=== PATIENT | female | born 1975 | race Caucasian/White ===

== ENCOUNTER 2016-09-11 07:41 | Inpatient (IN) | payer MEDICAID ==
[~2016-09-11] VITALS: Ht 154.9 cm; Wt 114.6 kg
[2016-09-11] MEDS ORDERED: SODIUM CHLORIDE FLUSH 10ML SYR IVF ONE (09:30)
[2016-09-11] MEDS ORDERED: SODIUM CHLORIDE 0.9% 1,000ML IVBOLUS ONE (09:30)
[2016-09-11] MEDS ORDERED: VANCOMYCIN PER PHARMACY MC ONE (09:30)
[2016-09-11] MEDS ORDERED: ACETAMINOPHEN 500 MG TABLET PO ONE (09:30)
[2016-09-11] MEDS ORDERED: HYDR25TA6 PO (09:45)
[2016-09-11] MEDS ORDERED: LISI-170 PO (09:45)
[2016-09-11] MEDS ORDERED: ALBU18HF INH (09:45)
[2016-09-11] MEDS ORDERED: ACETAMINOPHEN 500 MG TABLET ONE (09:48)
[2016-09-11] MEDS ORDERED: PHARMACOKINETIC CONSULTATION MC ONE ×2 (10:00→14:00)
[2016-09-11] MEDS ORDERED: VANCOMYCIN 2,000 MG in SODIUM CHLORIDE 0.9% 500 ML IV ONE (10:00)
[2016-09-11 10:09] LABS: HEMATOCRIT 38.5 % (34.6-47.8); HEMOGLOBIN 12.9 g/dL (11.7-16.4); WHITE BLOOD COUNT 25.3 x10^3/uL (3.4-10)
[2016-09-11 10:22] LABS: BLOOD UREA NITROGEN 6 mg/dL (7-18)
[2016-09-11 10:25] LABS: DIFF TOTAL CELLS COUNTED 100 CELL DIFF
[2016-09-11 10:26] LABS: ASPARTATE AMINO TRANSFERASE 20 U/L (15-37)
[2016-09-11 10:28] LABS: VERIFY COUNTS? YES
[2016-09-11 10:36] LABS: PATH.CAST-FLAG NOT PRESENT; SPERM-FLAG NOT PRESENT; SRC-FLAG NOT PRESENT; XTAL-FLAG NOT PRESENT; YLC-FLAG NOT PRESENT
[2016-09-11] MEDS ORDERED: CEFTRIAXONE PMX 1GM/50ML 50 ML IV ONE (11:00)
[2016-09-11 11:30] VITALS: BP 154/108
[2016-09-11] MEDS: HYDROCHLOROTHIAZIDE 25 MG TABLET PO SCH (11:30)
[2016-09-11] MEDS ORDERED: VANCOMYCIN PER PHARMACY MC PRN (13:00)
[2016-09-11] MEDS ORDERED: ONDANSETRON 2MG/ML, 2ML IVPush PRN (13:00)
[2016-09-11] MEDS ORDERED: ENALAPRILAT 1.25 MG/ML, 2ML IVPush PRN (13:00)
[2016-09-11] MEDS ORDERED: TEMAZEPAM 15 MG CAPSULE PO PRN (13:00)
[2016-09-11] MEDS ORDERED: DOCUSATE 100 MG CAPSULE PO PRN (13:00)
[2016-09-11] MEDS ORDERED: LABETALOL 5MG/ML, 20ML IVPush PRN (13:00)
[2016-09-11] MEDS ORDERED: PHARMACOKINETIC MONITORING MC PRN (14:00)
[2016-09-11] MEDS: NICOTINE 21 MG/24 HR PATCH.TD24 TD SCH (15:07)
[2016-09-11] MEDS: HEPARIN 5,000 UNITS/ML, 1ML SQ SCH ×2 (15:09→22:33)
[2016-09-11] MEDS: POTASSIUM CHLORIDE 20 MEQ TAB.ER.PRT PO SCH (15:11)
[2016-09-11] MEDS: LISINOPRIL 20 MG TABLET PO SCH (15:11)
[2016-09-11 19:49] VITALS: BP 149/96
[2016-09-11] MEDS: FAMOTIDINE 20 MG/2 ML IVPush SCH (22:33)
[2016-09-11] MEDS: morphine SULFATE 10 MG/ML, 1ML IVPush PRN (22:33)
[2016-09-12 03:03] VITALS: BP 150/80
[2016-09-12] MEDS: VANCOMYCIN 2,000 MG in SODIUM CHLORIDE 0.9% 500 ML IV SCH ×2 (04:31→23:14)
[2016-09-12 05:05] LABS: BLOOD UREA NITROGEN 4 mg/dL (7-18); HEMATOCRIT 36.9 % (34.6-47.8); HEMOGLOBIN 12.1 g/dL (11.7-16.4); WHITE BLOOD COUNT 19.2 x10^3/uL (3.4-10)
[2016-09-12 05:17] LABS: ASPARTATE AMINO TRANSFERASE 12 U/L (15-37)
[2016-09-12 06:39] VITALS: BP 135/91
[2016-09-12] MEDS: HYDROCHLOROTHIAZIDE 25 MG TABLET PO SCH (08:05)
[2016-09-12] MEDS: POTASSIUM CHLORIDE 20 MEQ TAB.ER.PRT PO SCH ×2 (08:05→17:00)
[2016-09-12] MEDS: LISINOPRIL 20 MG TABLET PO SCH (08:05)
[2016-09-12] MEDS: HEPARIN 5,000 UNITS/ML, 1ML SQ SCH ×3 (08:05→23:17)
[2016-09-12] MEDS: FAMOTIDINE 20 MG/2 ML IVPush SCH ×2 (08:05→19:53)
[2016-09-12] MEDS: SENNA/DOCUSATE TABLET PO SCH (08:05)
[2016-09-12] MEDS: CEFTRIAXONE PMX 2GM/50ML 50 ML IV SCH (08:40)
[2016-09-12 12:32] VITALS: BP 138/88
[2016-09-12] MEDS: NICOTINE 21 MG/24 HR PATCH.TD24 TD SCH (15:01)
[2016-09-12] MEDS ORDERED: POTASSIUM PHOS 4.4 MEQ/ML IV SCH (15:30)
[2016-09-12] MEDS: NEUTRA PHOS K 250 MG TABLET PO SCH ×2 (16:21→19:53)
[2016-09-12] MEDS ORDERED: MAGNESIUM SULFATE PMX 4GM/100M 100 ML IV ONE (17:00)
[2016-09-12] MEDS ORDERED: POTASSIUM PHOSPHATE 44 MEQ in SODIUM CHLORIDE 0.9% 500 ML IV ONE (17:00)
[2016-09-12] MEDS: LORazepam 1MG TABLET PO PRN (17:29)
[2016-09-12 19:02] VITALS: BP 132/82
[2016-09-12] MEDS: MAGNESIUM OXIDE 400 MG TABLET PO SCH (19:53)
[2016-09-13 01:12] VITALS: BP 139/86
[2016-09-13] MEDS: ACETAMINOPHEN 325 MG TABLET PO PRN ×2 (01:22→23:08)
[2016-09-13 05:47] LABS: HEMATOCRIT 35.5 % (34.6-47.8); HEMOGLOBIN 11.7 g/dL (11.7-16.4); WHITE BLOOD COUNT 12.6 x10^3/uL (3.4-10)
[2016-09-13 05:52] LABS: ASPARTATE AMINO TRANSFERASE 16 U/L (15-37); BLOOD UREA NITROGEN 6 mg/dL (7-18)
[2016-09-13] MEDS: HEPARIN 5,000 UNITS/ML, 1ML SQ SCH ×3 (06:00→23:08)
[2016-09-13 07:37] VITALS: BP 139/81
[2016-09-13] MEDS: CEFTRIAXONE PMX 2GM/50ML 50 ML IV SCH (09:02)
[2016-09-13] MEDS: LISINOPRIL 20 MG TABLET PO SCH (09:03)
[2016-09-13] MEDS: FAMOTIDINE 20 MG/2 ML IVPush SCH ×2 (09:03→19:48)
[2016-09-13] MEDS: MAGNESIUM OXIDE 400 MG TABLET PO SCH ×2 (09:03→19:48)
[2016-09-13] MEDS: HYDROCHLOROTHIAZIDE 25 MG TABLET PO SCH (09:03)
[2016-09-13] MEDS: NEUTRA PHOS K 250 MG TABLET PO SCH ×3 (09:03→19:48)
[2016-09-13] MEDS: SENNA/DOCUSATE TABLET PO SCH (09:03)
[2016-09-13 13:28] VITALS: BP 133/77
[2016-09-13] MEDS: NICOTINE 21 MG/24 HR PATCH.TD24 TD SCH (16:01)
[2016-09-13] MEDS: VANCOMYCIN 2,000 MG in SODIUM CHLORIDE 0.9% 500 ML IV SCH (16:01)
[2016-09-13] MEDS: LORazepam 1MG TABLET PO PRN (16:01)
[2016-09-13 18:53] VITALS: BP 153/99
[2016-09-13] MEDS: morphine SULFATE 10 MG/ML, 1ML IVPush PRN (19:48)
[2016-09-14 01:53] VITALS: BP 145/97
[2016-09-14] MEDS ORDERED: KETOROLAC 30 MG/1 ML IVPush PRN (02:00)
[2016-09-14] MEDS ORDERED: ONDANSETRON 2MG/ML, 2ML IVPush PRN (02:00)
[2016-09-14] MEDS: ACETAMINOPHEN 325 MG TABLET PO PRN ×4 (05:37→20:50)
[2016-09-14] MEDS ORDERED: POTASSIUM CHLORIDE 10 MEQ TABLET.ER PO SCH (07:30)
[2016-09-14 07:59] VITALS: BP 152/109
[2016-09-14] MEDS: ONDANSETRON ODT 4 MG PO PRN ×3 (08:51→20:50)
[2016-09-14] MEDS: SENNA/DOCUSATE TABLET PO SCH (08:52)
[2016-09-14] MEDS: HYDROCHLOROTHIAZIDE 25 MG TABLET PO SCH (08:52)
[2016-09-14] MEDS: MAGNESIUM OXIDE 400 MG TABLET PO SCH ×2 (08:52→20:50)
[2016-09-14] MEDS: CEFTRIAXONE PMX 2GM/50ML 50 ML IV SCH (08:53)
[2016-09-14] MEDS: HEPARIN 5,000 UNITS/ML, 1ML SQ SCH ×3 (08:53→23:12)
[2016-09-14] MEDS: LISINOPRIL 20 MG TABLET PO SCH (08:53)
[2016-09-14] MEDS: NEUTRA PHOS K 250 MG TABLET PO SCH ×3 (08:56→23:09)
[2016-09-14] MEDS: FAMOTIDINE 20 MG/2 ML IVPush SCH ×2 (09:02→20:50)
[2016-09-14] MEDS: VANCOMYCIN 2,000 MG in SODIUM CHLORIDE 0.9% 500 ML IV SCH (11:22)
[2016-09-14 13:59] VITALS: BP 140/107
[2016-09-14] MEDS ORDERED: BISACODYL 10 MG SUPP PR PRN (15:00)
[2016-09-14] MEDS: NICOTINE 21 MG/24 HR PATCH.TD24 TD SCH (15:07)
[2016-09-14 19:25] VITALS: BP 125/86
[2016-09-15 02:07] VITALS: BP 140/95
[2016-09-15] MEDS: ACETAMINOPHEN 325 MG TABLET PO PRN ×3 (02:09→14:30)
[2016-09-15] MEDS: ONDANSETRON ODT 4 MG PO PRN (02:09)
[2016-09-15] MEDS: VANCOMYCIN 2,000 MG in SODIUM CHLORIDE 0.9% 500 ML IV SCH (04:54)
[2016-09-15 04:56] LABS: HEMATOCRIT 35.8 % (34.6-47.8); HEMOGLOBIN 11.8 g/dL (11.7-16.4); WHITE BLOOD COUNT 8.5 x10^3/uL (3.4-10)
[2016-09-15 05:06] LABS: BLOOD UREA NITROGEN 9 mg/dL (7-18)
[2016-09-15 05:09] LABS: ASPARTATE AMINO TRANSFERASE 10 U/L (15-37)
[2016-09-15 06:32] VITALS: BP 116/58
[2016-09-15 07:11] VITALS: BP 153/91
[2016-09-15] MEDS: SENNA/DOCUSATE TABLET PO SCH ×2 (09:00→09:43)
[2016-09-15] MEDS: FAMOTIDINE 20 MG/2 ML IVPush SCH (09:42)
[2016-09-15] MEDS: CEFTRIAXONE PMX 2GM/50ML 50 ML IV SCH (09:43)
[2016-09-15] MEDS: LISINOPRIL 20 MG TABLET PO SCH (09:43)
[2016-09-15] MEDS: HYDROCHLOROTHIAZIDE 25 MG TABLET PO SCH (09:43)
[2016-09-15] MEDS: NEUTRA PHOS K 250 MG TABLET PO SCH (09:43)
[2016-09-15] MEDS: MAGNESIUM OXIDE 400 MG TABLET PO SCH (09:43)
[2016-09-15] MEDS: HEPARIN 5,000 UNITS/ML, 1ML SQ SCH (09:54)
[2016-09-15 12:35] VITALS: BP 170/98
[2016-09-15] MEDS ORDERED: HYDR25TA6 PO (14:05)
[2016-09-15] MEDS ORDERED: SULF1TAB24 PO (14:05)
[2016-09-15] MEDS ORDERED: LISI-170 PO (14:07)
[2016-09-15] MEDS: NICOTINE 21 MG/24 HR PATCH.TD24 TD SCH ×2 (14:30→14:32)
== END 2016-09-15 16:00 | disposition home or self-care (01) | DRG 603 ==
LOC: ED 10:39 → 3NE 10:40 → ED 10:57
PROVIDERS: ADMIT Internal Medicine; ATTEND Internal Medicine
DX: L03.116 Cellulitis of left lower limb (principal); E87.1 Hypo-osmolality and hyponatremia; E44.0 Moderate protein-calorie malnutrition; N39.0 Urinary tract infection, site not specified; Z68.42 Body mass index [BMI] 45.0-49.9, adult; D64.9 Anemia, unspecified; E66.01 Morbid (severe) obesity due to excess calories; E87.6 Hypokalemia; F12.90 Cannabis use, unspecified, uncomplicated; F15.90 Other stimulant use, unspecified, uncomplicated; F17.210 Nicotine dependence, cigarettes, uncomplicated; F32.9 Major depressive disorder, single episode, unspecified; F41.9 Anxiety disorder, unspecified; I10 Essential (primary) hypertension; Z59.0 Homelessness
CPT/HCPCS: 36415; 71010; 80053; 80202; 81001; 83605; 83735; 84100; 84145; 84443; 84703; 85025; 87040; 87086; 93005; 96365; J0696; J1644; J1885; J2405; J3370; Q0162; J2270; J3475; J7030; J7040; Q0177; S0028

== ENCOUNTER 2019-08-12 17:15 | Inpatient (IN) | payer MEDICAID ==
[~2019-08-12] VITALS: Ht 154.9 cm; Wt 120.7 kg
[~2019-08-12 17:15] MED LIST: ALBU18HF INH; HYDR25TA6 PO; LISI-170 PO; SULF1TAB24 PO
--- NOTE | 2019-08-12 17:42 | NUR ---
RADIOLOGY AT BEDSIDE
[2019-08-12] MEDS ORDERED: ALBUTEROL SULFATE 2.5 MG/3 ML NPPB ONE (18:00)
[2019-08-12 18:22] LABS: ALANINE AMINOTRANSFERASE 23 U/L (12-78); ALBUMIN 2.9 g/dL (3.4-5.0); ANION GAP 6 mmol/L (5-15); CALCIUM 8.7 mg/dL (8.5-10.1); CHLORIDE 106 mmol/L (98-107); CREATININE 0.87 mg/dL (0.55-1.02)
[2019-08-12 18:26] LABS: ALKALINE PHOSPHATASE 98 U/L (45-117); BILIRUBIN,TOTAL 0.2 mg/dL (0.2-1.0); TOTAL PROTEIN 6.8 g/dL (6.4-8.2); TROPONIN I < 0.015 ng/mL (0.000-0.045)
[2019-08-12 18:56] LABS: BASOPHILS # (AUTO) 0.06 x10^3/uL (0-0.1); BASOPHILS % (AUTO) 1 % (0-1); EOSINOPHILS # (AUTO) 0.23 x10^3/uL (0-0.4); EOSINOPHILS % (AUTO) 3 % (1-7); LYMPHOCYTES % (AUTO) 26 % (22-44); MD NO; MEAN CORPUSCULAR HEMOGLOBIN 29.3 pg (27.0-34.8); MEAN CORPUSCULAR HGB CONC 32.5 g/dL (32.4-35.8); MEAN PLATELET VOLUME 7.8 fL (7.4-10.4); MONOCYTES # (AUTO) 0.58 x10^3/uL (0.2-0.8); MONOCYTES % (AUTO) 7 % (2-9); NEUTROPHILS # (AUTO) 5.26 x10^3/uL (1.8-6.8); NEUTROPHILS % (AUTO) 63 % (42-75); PLATELET COUNT 283 x10^3/uL (130-400); RED BLOOD COUNT 3.97 x10^6/uL (3.82-5.3); RED CELL DISTRIBUTION WIDTH 14.1 % (9.6-15.2)
--- NOTE | 2019-08-12 19:03 | NUR ---
piv placed to left ac for CTA
[2019-08-12] MEDS ORDERED: ALBUTEROL SULFATE 2.5 MG/3 ML ONE (19:14)
--- NOTE | 2019-08-12 19:20 | NUR ---
to ct scan
[2019-08-12] MEDS ORDERED: OMNIPAQUE 350 MG/ML, 75ML BOTTLE ONE (19:32)
--- NOTE | 2019-08-12 20:00 | NUR ---
post neb tx patien coughed up 5cm blood clot provider made aware post neb tx bs slighly improved
[2019-08-12] MEDS ORDERED: BISACODYL 10 MG SUPP PR PRN (20:30)
[2019-08-12] MEDS ORDERED: POLYETHYLENE GLYCOL 17 GM PACKET PO PRN (20:30)
[2019-08-12] MEDS ORDERED: ACETAMINOPHEN 325 MG TABLET PO PRN (20:30)
[2019-08-12] MEDS ORDERED: ONDANSETRON ODT 4 MG PO PRN (20:30)
[2019-08-12] MEDS ORDERED: HEPARIN 25,000 UNITS/250ML PMX 250 ML IV PRN ×2 (20:30→22:00)
[2019-08-12] MEDS ORDERED: HEPARIN 25,000 UNITS/250ML PMX 250 ML ONE (20:57)
[2019-08-12] MEDS ORDERED: HEPARIN 5,000 UNITS/ML, 1ML ONE (20:57)
[2019-08-12] MEDS ORDERED: HEPARIN 5,000 UNITS/ML, 1ML IV PRN ×2 (21:00→22:00)
[2019-08-12] MEDS ORDERED: HEPARIN 5,000 UNITS/ML, 1ML IV ONE ×2 (21:00→22:00)
[2019-08-12] MEDS: NICOTINE 14MG/24 HR PATCH.TD24 TD SCH (21:54)
[2019-08-12 22:05] VITALS: BP 145/95
[2019-08-13 01:01] VITALS: BP 141/91
[2019-08-13 04:00] LABS: ANION GAP 6 mmol/L (5-15); CALCIUM 8.5 mg/dL (8.5-10.1); CHLORIDE 107 mmol/L (98-107); CREATININE 0.79 mg/dL (0.55-1.02)
[2019-08-13 04:08] LABS: MEAN CORPUSCULAR HEMOGLOBIN 28.7 pg (27.0-34.8); MEAN CORPUSCULAR HGB CONC 30.6 g/dL (32.4-35.8); MEAN PLATELET VOLUME 7.7 fL (7.4-10.4); PLATELET COUNT 304 x10^3/uL (130-400); RED BLOOD COUNT 4.01 x10^6/uL (3.82-5.3); RED CELL DISTRIBUTION WIDTH 15.9 % (9.6-15.2)
[2019-08-13] MEDS ORDERED: HEPARIN 5,000 UNITS/ML, 1ML IV PRN (04:30)
[2019-08-13] MEDS ORDERED: HEPARIN 25,000 UNITS/250ML PMX 250 ML IV PRN (04:30)
[2019-08-13 04:34] LABS: BASOPHILS # (AUTO) 0.04 x10^3/uL (0-0.1); BASOPHILS % (AUTO) 0 % (0-1); EOSINOPHILS # (AUTO) 0.24 x10^3/uL (0-0.4); EOSINOPHILS % (AUTO) 3 % (1-7); LYMPHOCYTES # (AUTO) 2.91 x10^3/uL (1-3.4); LYMPHOCYTES % (AUTO) 34 % (22-44); MD SCAN; MONOCYTES % (AUTO) 7 % (2-9); NEUTROPHILS # (AUTO) 4.72 x10^3/uL (1.8-6.8); NEUTROPHILS % (AUTO) 56 % (42-75)
[2019-08-13 07:11] VITALS: BP 171/122
[2019-08-13 07:46] VITALS: BP 178/120
[2019-08-13] MEDS: LISINOPRIL 20 MG TABLET PO SCH (07:51)
[2019-08-13] MEDS: CHLORDIAZEPOXIDE 25 MG CAPSULE PO PRN ×2 (07:51→17:17)
[2019-08-13] MEDS: HYDROCHLOROTHIAZIDE 25 MG TABLET PO SCH (07:51)
[2019-08-13] MEDS: SENNA/DOCUSATE TABLET PO SCH (07:51)
[2019-08-13 08:31] VITALS: BP 134/80
[2019-08-13] MEDS ORDERED: LORazepam 1MG TABLET PO PRN (11:00)
[2019-08-13] MEDS ORDERED: LORazepam 2 MG/ML, 1ML IV PRN ×3 (11:00)
[2019-08-13] MEDS ORDERED: LORazepam 0.5MG TABLET PO PRN (11:00)
[2019-08-13] MEDS: ACETAMINOPHEN 325 MG TABLET PO PRN (11:22)
[2019-08-13] MEDS: CARVEDILOL 6.25 MG TABLET PO SCH ×2 (11:23→17:57)
[2019-08-13] MEDS: APIXABAN 5 MG TABLET PO SCH ×2 (11:23→21:35)
[2019-08-13 14:43] VITALS: BP 156/99
[2019-08-13 19:25] VITALS: BP 154/94
[2019-08-13] MEDS: NICOTINE 14MG/24 HR PATCH.TD24 TD SCH (21:32)
[2019-08-14 02:29] VITALS: BP 139/81
[2019-08-14] MEDS ORDERED: ACETAMINOPHEN 325 MG TABLET PO PRN (03:00)
[2019-08-14] MEDS: ACETAMINOPHEN 325 MG TABLET PO PRN ×3 (03:13→22:59)
[2019-08-14] MEDS: CARVEDILOL 6.25 MG TABLET PO SCH ×2 (06:08→16:57)
[2019-08-14 08:51] VITALS: BP 122/78
[2019-08-14] MEDS: LISINOPRIL 20 MG TABLET PO SCH (09:00)
[2019-08-14] MEDS ORDERED: LISINOPRIL 10 MG TABLET ONE (09:18)
[2019-08-14] MEDS: CHLORDIAZEPOXIDE 25 MG CAPSULE PO PRN (09:32)
[2019-08-14] MEDS: HYDROCHLOROTHIAZIDE 25 MG TABLET PO SCH (09:32)
[2019-08-14] MEDS: SENNA/DOCUSATE TABLET PO SCH (09:32)
[2019-08-14] MEDS: APIXABAN 5 MG TABLET PO SCH ×2 (09:32→21:05)
[2019-08-14 13:01] VITALS: BP 115/79
[2019-08-14 16:56] VITALS: BP 139/84
[2019-08-14 18:39] VITALS: BP 133/80
[2019-08-14 21:03] VITALS: BP 130/79
[2019-08-14] MEDS: NICOTINE 14MG/24 HR PATCH.TD24 TD SCH (21:05)
[2019-08-15 00:43] VITALS: BP 108/79
[2019-08-15 05:38] VITALS: BP 134/81
[2019-08-15] MEDS: CARVEDILOL 6.25 MG TABLET PO SCH (05:42)
[2019-08-15 05:48] LABS: % IRON SATURATION 11 % (20-55); IRON LEVEL 48 mcg/dL (50-170); TOTAL IRON BINDING CAPACITY 453 mcg/dL (250-450)
[2019-08-15 07:47] VITALS: BP 133/85
[2019-08-15] MEDS ORDERED: LISINOPRIL 10 MG TABLET ONE (07:47)
[2019-08-15] MEDS: LISINOPRIL 20 MG TABLET PO SCH (09:00)
[2019-08-15] MEDS: SENNA/DOCUSATE TABLET PO SCH (09:00)
[2019-08-15] MEDS: APIXABAN 5 MG TABLET PO SCH (09:10)
[2019-08-15] MEDS: HYDROCHLOROTHIAZIDE 25 MG TABLET PO SCH (09:11)
[2019-08-15] MEDS: CHLORDIAZEPOXIDE 25 MG CAPSULE PO PRN (09:20)
[2019-08-15] MEDS ORDERED: CARV6.2512 PO (13:34)
[2019-08-15] MEDS ORDERED: LISI-170 PO (13:34)
[2019-08-15] MEDS ORDERED: APIX5TAB PO ×2 (13:34)
== END 2019-08-15 14:43 | disposition home or self-care (01) | DRG 134 ==
LOC: ED 19:35 → EDIP 20:21 → 3N 21:37 → 4NW 08-13 16:17
PROVIDERS: ADMIT Internal Medicine; ATTEND Internal Medicine
DX: I26.99 Other pulmonary embolism without acute cor pulmonale (principal); R04.2 Hemoptysis; E66.2 Morbid (severe) obesity with alveolar hypoventilation; Z68.43 Body mass index [BMI] 50.0-59.9, adult; F10.20 Alcohol dependence, uncomplicated; I10 Essential (primary) hypertension; F12.90 Cannabis use, unspecified, uncomplicated; F17.210 Nicotine dependence, cigarettes, uncomplicated; F41.9 Anxiety disorder, unspecified; J45.909 Unspecified asthma, uncomplicated; Z63.8 Other specified problems related to primary support group; Z71.3 Dietary counseling and surveillance; Z66 Do not resuscitate; Z82.49 Family history of ischemic heart disease and other diseases of the circulatory system; Z91.14 Patient's other noncompliance with medication regimen; Z59.0 Homelessness; Z98.891 History of uterine scar from previous surgery; Z90.49 Acquired absence of other specified parts of digestive tract; Z20.828 Contact with and (suspected) exposure to other viral communicable diseases; R06.00 Dyspnea, unspecified
CPT/HCPCS: 36415; 96374; 96375; 99285; J7613; 71045; 71275; 80048; 80053; 83540; 83550; 84484; 85025; 85379; 85520; 87635; 93005; 93970; G0378; J1644; Q9967

== ENCOUNTER 2019-08-15 15:34 | Emergency (ER) | payer MEDICAID ==
[~2019-08-15] VITALS: Ht 154.9 cm; Wt 122.4 kg
[~2019-08-15 15:34] MED LIST changes: +APIX5TAB PO; +CARV6.2512 PO
[2019-08-15] MEDS ORDERED: LISINOPRIL 20 MG TABLET PO ONE (16:30)
[2019-08-15] MEDS ORDERED: CARVEDILOL 6.25 MG TABLET PO ONE (16:30)
--- NOTE | 2019-08-15 16:34 | NUR ---
MEDS ORDERED FROM PHARMACY. SW TO SEE PT.
[2019-08-15 17:03] VITALS: BP 144/78
--- NOTE | 2019-08-15 17:03 | NUR ---
MEDS ADMIN PER APR.
--- NOTE | 2019-08-15 17:36 | NUR ---
SW SPOKE WITH PT AND VERIFIED MEDS READY AT PHARMACY.
== END 2019-08-15 17:43 | disposition home or self-care (01) ==
LOC: ED 16:53
DX: I10 Essential (primary) hypertension (principal); Z76.0 Encounter for issue of repeat prescription
CPT/HCPCS: 99283

== ENCOUNTER 2019-08-21 23:06 | Emergency (ER) | payer MEDICAID ==
[~2019-08-21] VITALS: Ht 154.9 cm; Wt 114.0 kg
[2019-08-22 00:34] LABS: BASOPHILS # (AUTO) 0.09 x10^3/uL (0-0.1); BASOPHILS % (AUTO) 1 % (0-1); EOSINOPHILS # (AUTO) 0.17 x10^3/uL (0-0.4); EOSINOPHILS % (AUTO) 2 % (1-7); LYMPHOCYTES % (AUTO) 22 % (22-44); MD NO; MEAN CORPUSCULAR HEMOGLOBIN 29.3 pg (27.0-34.8); MEAN CORPUSCULAR HGB CONC 33.2 g/dL (32.4-35.8); MEAN CORPUSCULAR VOLUME 88.2 fL (80-100); MEAN PLATELET VOLUME 7.4 fL (7.4-10.4); MONOCYTES # (AUTO) 0.71 x10^3/uL (0.2-0.8); MONOCYTES % (AUTO) 6 % (2-9); NEUTROPHILS % (AUTO) 70 % (42-75); PLATELET COUNT 265 x10^3/uL (130-400); RED BLOOD COUNT 3.99 x10^6/uL (3.82-5.3); RED CELL DISTRIBUTION WIDTH 14.2 % (9.6-15.2)
[2019-08-22 00:47] LABS: ALANINE AMINOTRANSFERASE 22 U/L (12-78); ALBUMIN 3.1 g/dL (3.4-5.0); ANION GAP 6 mmol/L (5-15); CALCIUM 8.5 mg/dL (8.5-10.1); CHLORIDE 106 mmol/L (98-107); CREATININE 0.89 mg/dL (0.55-1.02)
[2019-08-22 00:52] LABS: ALKALINE PHOSPHATASE 81 U/L (45-117); BILIRUBIN,TOTAL 0.5 mg/dL (0.2-1.0); TOTAL PROTEIN 7.1 g/dL (6.4-8.2); TROPONIN I < 0.015 ng/mL (0.000-0.045)
--- NOTE | 2019-08-22 01:44 | NUR ---
Pt asleep at this time, breathing deep and even, eyes closed.
[2019-08-22 02:38] VITALS: BP 161/88
== END 2019-08-22 03:30 | disposition home or self-care (01) ==
LOC: ED 08-22 02:51
DX: R06.00 Dyspnea, unspecified (principal); R07.89 Other chest pain; R60.0 Localized edema; R06.02 Shortness of breath; R00.0 Tachycardia, unspecified; I10 Essential (primary) hypertension; F17.210 Nicotine dependence, cigarettes, uncomplicated
CPT/HCPCS: 36415; 71045; 80053; 83880; 84484; 85025; 93005; 99285

== ENCOUNTER 2019-10-16 05:25 | Inpatient (IN) | payer MEDICAID ==
[~2019-10-16] VITALS: Ht 154.9 cm; Wt 120.7 kg
[2019-10-16] MEDS ORDERED: SODIUM CHLORIDE FLUSH 10ML SYR IVF ONE (06:00)
[2019-10-16 06:20] LABS: BASOPHILS # (AUTO) 0.08 x10^3/uL (0-0.1); BASOPHILS % (AUTO) 1 % (0-1); EOSINOPHILS # (AUTO) 0.25 x10^3/uL (0-0.4); EOSINOPHILS % (AUTO) 2 % (1-7); LYMPHOCYTES # (AUTO) 3.36 x10^3/uL (1-3.4); LYMPHOCYTES % (AUTO) 27 % (22-44); MD NO; MEAN CORPUSCULAR HEMOGLOBIN 28.4 pg (27.0-34.8); MEAN CORPUSCULAR HGB CONC 32.2 g/dL (32.4-35.8); MEAN CORPUSCULAR VOLUME 88.2 fL (80-100); MEAN PLATELET VOLUME 6.9 fL (7.4-10.4); MONOCYTES # (AUTO) 0.88 x10^3/uL (0.2-0.8); MONOCYTES % (AUTO) 7 % (2-9); NEUTROPHILS # (AUTO) 7.88 x10^3/uL (1.8-6.8); NEUTROPHILS % (AUTO) 63 % (42-75); PLATELET COUNT 415 x10^3/uL (130-400); RED BLOOD COUNT 4.35 x10^6/uL (3.82-5.3); RED CELL DISTRIBUTION WIDTH 14.6 % (9.6-15.2)
[2019-10-16] MEDS ORDERED: ALBUTEROL SULFATE 2.5 MG/3 ML NPPB ONE (06:30)
--- NOTE | 2019-10-16 06:30 | NUR ---
REPORT OF PT AT THIS TIME FROM NAKUL RAYA AND ASSUMING CARE OF PT.
[2019-10-16 06:32] LABS: ALANINE AMINOTRANSFERASE 19 U/L (12-78); ALBUMIN 2.9 g/dL (3.4-5.0); ANION GAP 6 mmol/L (5-15); CALCIUM 8.6 mg/dL (8.5-10.1); CHLORIDE 103 mmol/L (98-107); CREATININE 0.96 mg/dL (0.55-1.02)
[2019-10-16] MEDS ORDERED: ALBUTEROL SULFATE 2.5 MG/3 ML ONE (06:32)
--- NOTE | 2019-10-16 06:35 | NUR ---
XRAY AT AT THIS TIME.
[2019-10-16 06:37] LABS: ALKALINE PHOSPHATASE 109 U/L (45-117); BILIRUBIN,TOTAL 0.4 mg/dL (0.2-1.0); TOTAL PROTEIN 7.8 g/dL (6.4-8.2); TROPONIN I < 0.015 ng/mL (0.000-0.045)
--- NOTE | 2019-10-16 07:07 | NUR ---
RECEIVED REPORT FROM JOHN CARBAJAL RN. PT RESTING ON GURNEY. NOTED TO BE SATING 83% RA AND PLACED ON 3L NC NOW SATING 97%. ERP DR. CALVIN NOTIFIED.
--- NOTE | 2019-10-16 07:35 | NUR ---
PIV INITIATED. CT NOTIFIED PT IS READY.
[2019-10-16] MEDS ORDERED: CEFTRIAXONE PMX 1GM/50ML 50 ML ONE (07:56)
[2019-10-16] MEDS ORDERED: AZITHROMYCIN 500 MG in SODIUM CHLORIDE 0.9% 250 ML IVPB ONE (08:00)
[2019-10-16] MEDS ORDERED: CEFTRIAXONE PMX 1GM/50ML 50 ML IVPB ONE (08:00)
--- NOTE | 2019-10-16 08:06 | NUR ---
PT RESTING COMFRTABLY IN BED, ABLE TO DOZE OFF. ABX STARTED AFTER BLOOD CULTURES X2. NAD. PT NOTED TO BE SATING AT 100% ON 2L, NOW TESTING ON ROOM AIR. NO NEEDS AT THIS TIME.
[2019-10-16] MEDS ORDERED: OMNIPAQUE 350 MG/ML, 100ML BOTTLE ONE (08:12)
[2019-10-16] MEDS ORDERED: NEOSPORIN OINT. PKT 1 PACKET ONE (08:48)
--- NOTE | 2019-10-16 08:50 | NUR ---
PT SITTING IN BED COMFORTABLY AND DOZING OFF. NOT ABLE TO RECALL DAILY MEDICATIONS. CURRENTLY SATING 98% ON ROOM AIR. NAD. NO NEEDS AT THIS TIME, COMFORT MEASURES PROVIDED. Addendum: 10/16/19 at 0853 by MINGALLS PT SITTING IN BED COMFORTABLY AND DOZING OFF. NOT ABLE TO RECALL DAILY MEDICATIONS. CURRENTLY SATING 98% ON 2L NASAL CANNULA. NAD. NO NEEDS AT THIS TIME, COMFORT MEASURES PROVIDED.
[2019-10-16] MEDS ORDERED: methylPREDNISolone SOD SUCC 125 MG/2 ML IV ONE (09:00)
[2019-10-16] MEDS ORDERED: methylPREDNISolone SOD SUCC 125 MG/2 ML ONE (09:01)
--- NOTE | 2019-10-16 10:03 | NUR ---
PT RESTING COMFORTABLY ON GURNEY, FREQUENTLY DOZING OFF, NAD. NOTED O2 SATURATION 99% ON 2L. PT DENIES ANY NEEDS AT THIS TIME. CALL LIGHT WITHIN REACH, COMFORT MEASURES PROVIDED.
--- NOTE | 2019-10-16 10:43 | NUR ---
Pt to be admitted to TELE 2, room 489. Report called to ABHINAV.
[2019-10-16] MEDS ORDERED: ACETAMINOPHEN 325 MG TABLET PO PRN (11:30)
[2019-10-16] MEDS ORDERED: POLYETHYLENE GLYCOL 17 GM PACKET PO PRN (11:30)
[2019-10-16] MEDS ORDERED: DOCUSATE 100 MG CAPSULE PO PRN (11:30)
[2019-10-16] MEDS ORDERED: BISACODYL 10 MG SUPP PR PRN (11:30)
[2019-10-16] MEDS ORDERED: hydrALAzine 20 MG/ML, 1ML IVPush PRN (11:30)
[2019-10-16] MEDS ORDERED: morphine SULFATE 10 MG/ML, 1ML IVPush PRN (11:30)
[2019-10-16] MEDS ORDERED: OXYcodone IR 5MG TABLET PO PRN (11:30)
[2019-10-16] MEDS ORDERED: ONDANSETRON ODT 4 MG PO PRN (11:30)
[2019-10-16] MEDS ORDERED: ONDANSETRON 2MG/ML, 2ML IVPush PRN (11:30)
[2019-10-16] MEDS ORDERED: PROMETHAZINE 25 MG/ML, 1ML IM PRN (11:30)
[2019-10-16 12:15] VITALS: BP 166/95
[2019-10-16 12:25] LABS: FREE T4 (FREE THYROXINE) 1.22 ng/dL (0.76-1.46)
[2019-10-16] MEDS ORDERED: ALBUTEROL HFA 90 MCG/SPRAY INH PRN (12:30)
[2019-10-16] MEDS ORDERED: VENTOLIN INH PRN (12:30)
[2019-10-16] MEDS ORDERED: ALBUTEROL/IPRATROPIUM 2.5MG/0.5MG, 3 ML NPPB SCH (13:00)
[2019-10-16] MEDS: ALBUTEROL-IPRATROPIUM MDI INH INH SCH ×3 (13:20→21:31)
[2019-10-16] MEDS: LISINOPRIL 20 MG TABLET PO SCH (13:21)
[2019-10-16] MEDS: APIXABAN 5 MG TABLET PO SCH ×2 (13:21→21:31)
[2019-10-16] MEDS ORDERED: LORazepam 2 MG/ML, 1ML IV PRN ×5 (14:00)
[2019-10-16] MEDS ORDERED: LORazepam 1MG TABLET PO PRN ×3 (14:00)
[2019-10-16] MEDS ORDERED: LORazepam 0.5MG TABLET PO PRN (14:00)
[2019-10-16 15:32] LABS: HCG UR SG 1.006 (1.003-1.030); MICROSCOPIC NOT IND
[2019-10-16] MEDS: methylPREDNISolone SOD SUCC 125 MG/2 ML IVPush SCH ×2 (16:02→21:31)
[2019-10-16] MEDS: NICOTINE 14MG/24 HR PATCH.TD24 TD SCH (16:02)
[2019-10-16 19:21] VITALS: BP 156/92
[2019-10-16] MEDS: LORazepam 1MG TABLET PO PRN (21:34)
[2019-10-17 02:19] VITALS: BP 130/85
[2019-10-17] MEDS: methylPREDNISolone SOD SUCC 125 MG/2 ML IVPush SCH ×2 (03:10→09:22)
[2019-10-17] MEDS: ALBUTEROL-IPRATROPIUM MDI INH INH SCH ×5 (05:30→20:32)
[2019-10-17 06:08] LABS: CHLORIDE 104 mmol/L (98-107)
[2019-10-17 06:17] LABS: MEAN CORPUSCULAR HEMOGLOBIN 28.5 pg (27.0-34.8); MEAN CORPUSCULAR HGB CONC 32.2 g/dL (32.4-35.8); MEAN CORPUSCULAR VOLUME 88.3 fL (80-100); MEAN PLATELET VOLUME 7.5 fL (7.4-10.4); PLATELET COUNT 396 x10^3/uL (130-400); RED BLOOD COUNT 4.31 x10^6/uL (3.82-5.3); RED CELL DISTRIBUTION WIDTH 14.3 % (9.6-15.2)
[2019-10-17 06:19] LABS: ALANINE AMINOTRANSFERASE 22 U/L (12-78); ALBUMIN 2.7 g/dL (3.4-5.0); ALKALINE PHOSPHATASE 106 U/L (45-117); ANION GAP 4 mmol/L (5-15); BILIRUBIN,TOTAL 0.2 mg/dL (0.2-1.0); CALCIUM 9.3 mg/dL (8.5-10.1); CHOL/HDL RATIO 3.8; CHOLESTEROL, TOTAL 211 mg/dL (140-239); CREATININE 0.75 mg/dL (0.55-1.02); FREE T4 (FREE THYROXINE) 0.96 ng/dL (0.76-1.46); HDL CHOL % 27 % (28-40); HDL CHOLESTEROL (DIRECT) 56 mg/dL (40-60); LDL CHOLESTEROL,CALCULATED 137 mg/dL (54-169); LDL/HDL RATIO 2.4 (0.5-3.0); TOTAL PROTEIN 7.5 g/dL (6.4-8.2); TRIGLYCERIDES 90 mg/dL (50-200); VLDL CHOLESTEROL 18 mg/dL (0-25)
[2019-10-17 06:36] LABS: MD YES
[2019-10-17 06:37] LABS: BAND#(MANUAL) 1.14 x10^3/uL; BANDS%(MANUAL) 6 % (0-7); LYMPH#(MANUAL) 1.33 x10^3/uL (1-3.4); LYMPHS% (MANUAL) 7 % (22-44); MONOS#(MANUAL) 0.38 x10^3/uL (0.3-2.7); MONOS% (MANUAL) 2 % (2-9); SEG#(MANUAL) 16.15 x10^3/uL (1.8-6.8); SEGS% (MANUAL) 85 % (42-75)
[2019-10-17 06:38] LABS: ANISOCYTOSIS 1+
[2019-10-17 06:39] LABS: <PLATELET ESTIMATE> INCREASED; <PLT MORPHOLOGY> NORMAL PLT MORPH; POLYCHROMASIA 1+
[2019-10-17 08:39] VITALS: BP 164/77
[2019-10-17] MEDS ORDERED: CEFTRIAXONE PMX 2GM/50ML 50 ML IV SCH (09:00)
[2019-10-17] MEDS: APIXABAN 5 MG TABLET PO SCH ×2 (09:22→20:32)
[2019-10-17] MEDS: LISINOPRIL 20 MG TABLET PO SCH (09:22)
[2019-10-17] MEDS: GUAIFENESIN ER 600 MG TABLET PO SCH ×2 (09:22→20:32)
[2019-10-17] MEDS: LORazepam 1MG TABLET PO PRN ×2 (09:34→20:41)
[2019-10-17] MEDS ORDERED: AZITHROMYCIN 500 MG in SODIUM CHLORIDE 0.9% 250 ML IV SCH (12:00)
[2019-10-17 12:48] VITALS: BP 145/74
[2019-10-17] MEDS: NICOTINE 14MG/24 HR PATCH.TD24 TD SCH (17:14)
[2019-10-17 18:10] VITALS: BP 154/94
[2019-10-17 19:47] VITALS: BP 159/91
[2019-10-18] VITALS (7 sets, daily range): BP systolic 115–174; BP diastolic 81–134
[2019-10-18] MEDS: ALBUTEROL-IPRATROPIUM MDI INH INH SCH ×4 (05:20→20:40)
[2019-10-18 05:26] LABS: MEAN CORPUSCULAR HEMOGLOBIN 28.1 pg (27.0-34.8); MEAN CORPUSCULAR HGB CONC 31.3 g/dL (32.4-35.8); MEAN CORPUSCULAR VOLUME 89.6 fL (80-100); MEAN PLATELET VOLUME 7.5 fL (7.4-10.4); PLATELET COUNT 390 x10^3/uL (130-400); RED BLOOD COUNT 4.14 x10^6/uL (3.82-5.3); RED CELL DISTRIBUTION WIDTH 14.2 % (9.6-15.2)
[2019-10-18 06:14] LABS: MD YES
[2019-10-18 06:15] LABS: BAND#(MANUAL) 0.72 x10^3/uL; BANDS%(MANUAL) 3 % (0-7); LYMPHS% (MANUAL) 15 % (22-44); METAMYELOCYTES# (MANUAL) 0.24 x10^3/uL (0-0); METAMYELOCYTES% (MANUAL) 1 % (0-1); MONOS#(MANUAL) 0.96 x10^3/uL (0.3-2.7); MONOS% (MANUAL) 4 % (2-9); SEG#(MANUAL) 18.48 x10^3/uL (1.8-6.8); SEGS% (MANUAL) 77 % (42-75)
[2019-10-18 06:17] LABS: <PLATELET ESTIMATE> ADEQUATE; <PLT MORPHOLOGY> NORMAL PLT MORPH; ANISOCYTOSIS 1+; HYPOCHROMIA 1+
[2019-10-18] MEDS: GUAIFENESIN ER 600 MG TABLET PO SCH ×2 (09:57→20:40)
[2019-10-18] MEDS: APIXABAN 5 MG TABLET PO SCH ×2 (09:57→20:41)
[2019-10-18] MEDS: LISINOPRIL 20 MG TABLET PO SCH (09:57)
[2019-10-18] MEDS: NICOTINE 14MG/24 HR PATCH.TD24 TD SCH (10:48)
[2019-10-18] MEDS: BUPROPION 100 MG TABLET PO SCH (15:00)
[2019-10-18] MEDS ORDERED: LABETALOL 5MG/ML, 20ML IVPush ONE (22:30)
[2019-10-19] VITALS: BP 148/104
[2019-10-19] MEDS: ALBUTEROL-IPRATROPIUM MDI INH INH SCH ×4 (05:44→20:09)
[2019-10-19 07:21] LABS: MEAN CORPUSCULAR HEMOGLOBIN 28.1 pg (27.0-34.8); MEAN CORPUSCULAR HGB CONC 31.6 g/dL (32.4-35.8); MEAN PLATELET VOLUME 7.2 fL (7.4-10.4); PLATELET COUNT 386 x10^3/uL (130-400); RED CELL DISTRIBUTION WIDTH 14.7 % (9.6-15.2)
[2019-10-19 07:55] LABS: BASOPHILS # (AUTO) 0.05 x10^3/uL (0-0.1); BASOPHILS % (AUTO) 0 % (0-1); EOSINOPHILS # (AUTO) 0.05 x10^3/uL (0-0.4); EOSINOPHILS % (AUTO) 0 % (1-7); LYMPHOCYTES # (AUTO) 3.96 x10^3/uL (1-3.4); LYMPHOCYTES % (AUTO) 24 % (22-44); MD SCAN; MONOCYTES % (AUTO) 7 % (2-9); NEUTROPHILS % (AUTO) 69 % (42-75)
[2019-10-19 08:09] VITALS: BP 92/52
[2019-10-19] MEDS: BUPROPION 100 MG TABLET PO SCH ×2 (08:25→14:34)
[2019-10-19] MEDS ORDERED: AMLODIPINE 5 MG TABLET PO SCH (09:00)
[2019-10-19] MEDS: GUAIFENESIN ER 600 MG TABLET PO SCH ×2 (10:24→20:09)
[2019-10-19] MEDS: APIXABAN 5 MG TABLET PO SCH ×2 (10:24→20:09)
[2019-10-19 10:25] VITALS: BP 175/117
[2019-10-19] MEDS: LISINOPRIL 20 MG TABLET PO SCH (10:25)
[2019-10-19] MEDS: NICOTINE 14MG/24 HR PATCH.TD24 TD SCH (10:46)
[2019-10-19 14:09] VITALS: BP 163/108
[2019-10-19 20:22] VITALS: BP 149/104
[2019-10-20 01:34] VITALS: BP 158/101
[2019-10-20] MEDS: ALBUTEROL-IPRATROPIUM MDI INH INH SCH ×3 (05:53→16:07)
[2019-10-20 05:55] VITALS: BP 137/88
[2019-10-20] MEDS ORDERED: METOPROLOL SUCCINATE 50 MG TAB.ER.24H PO SCH (06:00)
[2019-10-20] MEDS: APIXABAN 5 MG TABLET PO SCH (08:06)
[2019-10-20] MEDS: GUAIFENESIN ER 600 MG TABLET PO SCH (08:06)
[2019-10-20] MEDS: LISINOPRIL 20 MG TABLET PO SCH (08:07)
[2019-10-20] MEDS: BUPROPION 100 MG TABLET PO SCH ×2 (08:07→15:00)
[2019-10-20 08:38] VITALS: BP 136/85
[2019-10-20] MEDS ORDERED: LISINOPRIL 40 MG TABLET PO SCH (09:00)
[2019-10-20] MEDS ORDERED: GUAIFENESIN ER 600 MG TABLET PO SCH (09:00)
[2019-10-20] MEDS ORDERED: AMLODIPINE 10 MG TAB PO SCH (09:00)
[2019-10-20] MEDS: NICOTINE 14MG/24 HR PATCH.TD24 TD SCH (11:10)
[2019-10-20 13:32] VITALS: BP 134/94
[2019-10-20] MEDS ORDERED: BUPR100T11 PO (16:50)
== END 2019-10-20 17:45 | disposition home or self-care (01) | DRG 190 ==
LOC: ED 06:20 → EDIP 08:54 → 4EST 11:51 → 3N 10-17 17:48
PROVIDERS: ADMIT Family Medicine; ATTEND Internal Medicine
DX: J43.9 Emphysema, unspecified (principal); J96.01 Acute respiratory failure with hypoxia; D68.59 Other primary thrombophilia; R45.851 Suicidal ideations; Z68.43 Body mass index [BMI] 50.0-59.9, adult; F41.0 Panic disorder [episodic paroxysmal anxiety]; E66.01 Morbid (severe) obesity due to excess calories; F10.10 Alcohol abuse, uncomplicated; F19.10 Other psychoactive substance abuse, uncomplicated; D72.829 Elevated white blood cell count, unspecified; F99 Mental disorder, not otherwise specified; F12.90 Cannabis use, unspecified, uncomplicated; F15.90 Other stimulant use, unspecified, uncomplicated; F17.210 Nicotine dependence, cigarettes, uncomplicated; F32.9 Major depressive disorder, single episode, unspecified; I10 Essential (primary) hypertension; F41.9 Anxiety disorder, unspecified; Z20.828 Contact with and (suspected) exposure to other viral communicable diseases; Z79.01 Long term (current) use of anticoagulants; Z59.0 Homelessness; Z86.711 Personal history of pulmonary embolism; Z82.49 Family history of ischemic heart disease and other diseases of the circulatory system; T38.0X5A Adverse effect of glucocorticoids and synthetic analogues, initial encounter; Y92.89 Other specified places as the place of occurrence of the external cause
CPT/HCPCS: 36415; 84145; J7613; 71045; 71275; 80053; 80061; 81003; 81025; 83605; 83735; 84439; 84443; 84484; 85025; 85379; 87040; 87081; 87147; 87635; 87880; 93005; G0378; J0456; J0696; J7509; Q9967; J0360; J2930; J7050; Q0177

== ENCOUNTER 2019-11-25 14:17 | Emergency (ER) | payer MEDICAID ==
[~2019-11-25] VITALS: Ht 154.9 cm; Wt 134.0 kg
[~2019-11-25 14:17] MED LIST changes: +BUPR100T11 PO
[2019-11-25 14:25] VITALS: BP 105/68
--- NOTE | 2019-11-25 14:45 | NUR ---
THIS IS A 44 YO F W/ C/O BLOODY STOOL X1 WEEK. PT REPORTS STOPPING ELIQUIS LAST SUNDAY ORDERED BY HER PROVIDER. PT REPORTS BEING ON ELIQUIS FOR PE. PT ALSO HAS C/O RECTAL PAIN AND RUQ PAIN. PT VSSNAZANIN. AT BEDSIDE FOR ED EVAL.
[2019-11-25] MEDS ORDERED: SODIUM CHLORIDE FLUSH 10ML SYR IVF ONE (15:00)
[2019-11-25 15:19] LABS: INTERNATIONAL NORMALIZED RATIO 0.88 (0.93-1.1); PROTHROMBIN TIME 9.3 Seconds (9.6-11.5)
[2019-11-25 15:20] LABS: BASOPHILS % (AUTO) 1 % (0-1); EOSINOPHILS % (AUTO) 3 % (1-7); LYMPHOCYTES % (AUTO) 32 % (22-44); MD NO; MEAN CORPUSCULAR HEMOGLOBIN 28.2 pg (27.0-34.8); MEAN CORPUSCULAR HGB CONC 32.5 g/dL (32.4-35.8); MEAN PLATELET VOLUME 7.2 fL (7.4-10.4); MONOCYTES % (AUTO) 9 % (2-9); NEUTROPHILS % (AUTO) 55 % (42-75); PLATELET COUNT 334 x10^3/uL (130-400); RED BLOOD COUNT 4.01 x10^6/uL (3.82-5.3); RED CELL DISTRIBUTION WIDTH 14.7 % (9.6-15.2)
[2019-11-25 15:21] LABS: ALANINE AMINOTRANSFERASE 14 U/L (12-78); CALCIUM 8.5 mg/dL (8.5-10.1); CREATININE 0.98 mg/dL (0.55-1.02)
[2019-11-25 15:23] LABS: ALKALINE PHOSPHATASE 84 U/L (45-117); BILIRUBIN,TOTAL 0.2 mg/dL (0.2-1.0)
[2019-11-25 15:29] LABS: ANION GAP 5 mmol/L (5-15); CHLORIDE 109 mmol/L (98-107)
--- NOTE | 2019-11-25 15:48 | NUR ---
ALL TESTS RESULTED. PT IS UP FOR RECHECK AT THIS TIME.
--- NOTE | 2019-11-25 16:40 | NUR ---
AT BEDSIDE FOR ED EVAL. Addendum: 11/25/19 at 1658 by AYLEENCIAGA AT BEDSIDE FOR PELVIC EXAM.
--- NOTE | 2019-11-25 17:08 | NUR ---
Patient given discharge instructions and they have confirmed that they understand the instructions. Patient ambulatory with steady gait.
== END 2019-11-25 17:09 | disposition home or self-care (01) ==
LOC: ED 15:44
DX: N93.8 Other specified abnormal uterine and vaginal bleeding (principal); K62.5 Hemorrhage of anus and rectum; R10.2 Pelvic and perineal pain; J44.9 Chronic obstructive pulmonary disease, unspecified; I10 Essential (primary) hypertension
CPT/HCPCS: 36415; 80053; 85025; 85610; 85730; 86850; 86900; 99284

== ENCOUNTER 2019-12-09 08:36 | Emergency (ER) | payer MEDICAID ==
[~2019-12-09] VITALS: Ht 154.9 cm; Wt 134.5 kg
[2019-12-09] MEDS ORDERED: KETOROLAC 60 MG/2 ML ONE (08:50)
[2019-12-09] MEDS ORDERED: KETOROLAC 30 MG/1 ML IM ONE (09:00)
[2019-12-09] MEDS ORDERED: PLEASE ENTER HEIGHT AND WEIGHT MC SCH (09:00)
[2019-12-09] MEDS ORDERED: TRAZ50TA66 PO (09:14)
[2019-12-09] MEDS ORDERED: CLON1TAB PO (09:15)
[2019-12-09] MEDS ORDERED: METO25TA35 PO (09:16)
[2019-12-09] MEDS ORDERED: LISI-170 PO (09:16)
[2019-12-09 11:07] LABS: MICROSCOPIC INDICATED
[2019-12-09 11:47] VITALS: BP 115/85
--- NOTE | 2019-12-09 11:48 | NUR ---
Patient given discharge instructions and they have confirmed that they understand the instructions. Patient ambulatory with steady gait.
== END 2019-12-09 11:49 | disposition home or self-care (01) ==
LOC: ED 10:49
DX: U07.1 COVID-19 (principal); B34.9 Viral infection, unspecified; R06.02 Shortness of breath; R05 Cough; M79.10 Myalgia, unspecified site; R09.81 Nasal congestion; I10 Essential (primary) hypertension; J44.9 Chronic obstructive pulmonary disease, unspecified; F17.200 Nicotine dependence, unspecified, uncomplicated
CPT/HCPCS: 36415; 71045; 81001; 87086; 87635; 96372; 99284; J1885; J7512

== ENCOUNTER 2019-12-13 10:40 | Inpatient (IN) | payer MEDICAID ==
[~2019-12-13] VITALS: Ht 154.9 cm; Wt 138.7 kg
[~2019-12-13 10:40] MED LIST changes: +CLON1TAB PO; +METO25TA35 PO; +TRAZ50TA66 PO
[2019-12-13] MEDS ORDERED: ONDANSETRON 2MG/ML, 2ML IVPush ONE (11:00)
[2019-12-13] MEDS ORDERED: SODIUM CHLORIDE 0.9% 1,000ML IVBOLUS ONE (11:00)
[2019-12-13] MEDS ORDERED: SODIUM CHLORIDE FLUSH 10ML SYR IVF ONE (11:00)
[2019-12-13 11:26] LABS: BASOPHILS % (AUTO) 1 % (0-1); EOSINOPHILS % (AUTO) 0 % (1-7); LYMPHOCYTES % (AUTO) 14 % (22-44); MEAN CORPUSCULAR HEMOGLOBIN 27.3 pg (27.0-34.8); MEAN CORPUSCULAR HGB CONC 32.1 g/dL (32.4-35.8); MONOCYTES % (AUTO) 9 % (2-9); NEUTROPHILS % (AUTO) 76 % (42-75); PLATELET COUNT 276 x10^3/uL (130-400); RED BLOOD COUNT 4.15 x10^6/uL (3.82-5.3); RED CELL DISTRIBUTION WIDTH 14.5 % (9.6-15.2)
[2019-12-13 11:33] LABS: ALANINE AMINOTRANSFERASE 23 U/L (12-78); ALBUMIN 2.9 g/dL (3.4-5.0); ANION GAP 5 mmol/L (5-15); CALCIUM 7.9 mg/dL (8.5-10.1); CHLORIDE 107 mmol/L (98-107); CREATININE 0.73 mg/dL (0.55-1.02)
[2019-12-13 11:35] LABS: ALKALINE PHOSPHATASE 72 U/L (45-117); BILIRUBIN,TOTAL 0.2 mg/dL (0.2-1.0); TOTAL PROTEIN 6.9 g/dL (6.4-8.2)
[2019-12-13] MEDS ORDERED: ONDANSETRON 2MG/ML, 2ML ONE (11:43)
[2019-12-13 11:44] LABS: MD NO
--- NOTE | 2019-12-13 12:03 | NUR ---
pt in bed , vss, no change
--- NOTE | 2019-12-13 12:39 | NUR ---
TASK RN: ER MD AT BEDSIDE EVALUATING PT. RA OXYGEN FLUXATING BETWEEN 78 AND 88 PERCENT. MD DISCUSSING INTENTION TO ADMIT. PT BACK ON OXYGEN VIA NC
[2019-12-13] MEDS ORDERED: AZITHROMYCIN 500 MG in SODIUM CHLORIDE 0.9% 250 ML IV ONE (13:00)
[2019-12-13] MEDS ORDERED: DEXAMETHASONE 4 MG/ML, 1ML IVPush ONE (13:00)
[2019-12-13] MEDS ORDERED: DEXAMETHASONE 4 MG/ML, 1ML ONE ×2 (13:27→21:04)
[2019-12-13] MEDS ORDERED: SODIUM CHLORIDE 0.9% 1,000 ML IV ONE (13:30)
[2019-12-13] MEDS ORDERED: SODIUM CHLORIDE FLUSH 10ML SYR IVF PRN (13:30)
--- NOTE | 2019-12-13 13:52 | NUR ---
PT IN BED NO CHANGE
[2019-12-13] MEDS: DEXAMETHASONE 4 MG/ML, 1ML IVPush SCH ×2 (14:00→21:07)
[2019-12-13] MEDS ORDERED: ENALAPRILAT 1.25 MG/ML, 2ML IVPush PRN (14:00)
[2019-12-13] MEDS ORDERED: ONDANSETRON 2MG/ML, 2ML IVPush PRN (14:00)
[2019-12-13] MEDS ORDERED: ONDANSETRON ODT 4 MG PO PRN (14:00)
[2019-12-13] MEDS: Enoxaparin 1 mg/kg protocol SQ SCH (14:00)
[2019-12-13 14:42] LABS: C-REACTIVE PROTEIN, QUANT 2.01 mg/dL (0.02-0.49)
--- NOTE | 2019-12-13 14:42 | NUR ---
Pt placed in hospital bed for comfort. Pt able to get up to bsc to void and back to bed without difficulty. POC discussed with pt. Pt denies other needs.
[2019-12-13] MEDS ORDERED: CEFTRIAXONE PMX 1GM/50ML 50 ML ONE (15:22)
--- NOTE | 2019-12-13 15:44 | NUR ---
Pt resting in bed with eyes closed, resp even and unlabored, NADN.
[2019-12-13] MEDS: CEFTRIAXONE PMX 1GM/50ML 50 ML IV SCH (15:59)
[2019-12-13] MEDS: ENOXAPARIN 100 MG/ML SQ SCH (17:25)
[2019-12-13] MEDS: ASCORBIC ACID 500 MG TABLET PO SCH (17:25)
[2019-12-13] MEDS: ENOXAPARIN 40 MG/0.4 ML SQ SCH (17:25)
--- NOTE | 2019-12-13 17:25 | NUR ---
Pt medicated per MAR, denies other needs.
--- NOTE | 2019-12-13 18:57 | NUR ---
REPORT OF PT FROM NAKUL LAMBERT AND BIA AND ASSUMING CARE OF PT AT THIS TIME.
--- NOTE | 2019-12-13 20:59 | NUR ---
ATTEMPTED TO GIVE REPORT X1. UNABLE TO REACH FLOOR NAKUL RICH AT THIS TIME.
[2019-12-13] MEDS ORDERED: TRAZODONE 50MG TABLET ONE (21:04)
[2019-12-13] MEDS ORDERED: METOPROLOL TARTRATE 25 MG TAB ONE (21:04)
[2019-12-13] MEDS: METOPROLOL TARTRATE 25 MG TAB PO SCH (21:07)
[2019-12-13] MEDS: TRAZODONE 50MG TABLET PO SCH (21:08)
--- NOTE | 2019-12-13 21:17 | NUR ---
PT MEDICATED PER APR. REPORT OF PT TO NAKUL COHEN AT THIS TIME. ALL QUESTIONS.
[2019-12-13 22:01] VITALS: BP 121/75
[2019-12-14] MEDS: Enoxaparin 1 mg/kg protocol SQ SCH (02:00)
[2019-12-14 03:29] VITALS: BP 129/79
[2019-12-14] MEDS: ENOXAPARIN 40 MG/0.4 ML SQ SCH (03:38)
[2019-12-14] MEDS: ENOXAPARIN 100 MG/ML SQ SCH (03:38)
[2019-12-14] MEDS: DEXAMETHASONE 4 MG/ML, 1ML IVPush SCH ×4 (03:38→22:05)
[2019-12-14] MEDS: ACETAMINOPHEN 325 MG TABLET PO PRN (03:47)
[2019-12-14 07:21] VITALS: BP 122/71
[2019-12-14 08:24] LABS: BASOPHILS % (AUTO) 1 % (0-1); EOSINOPHILS % (AUTO) 0 % (1-7); LYMPHOCYTES % (AUTO) 17 % (22-44); MEAN CORPUSCULAR HEMOGLOBIN 27.5 pg (27.0-34.8); MEAN CORPUSCULAR HGB CONC 31.7 g/dL (32.4-35.8); MEAN PLATELET VOLUME 7.3 fL (7.4-10.4); MONOCYTES % (AUTO) 3 % (2-9); NEUTROPHILS % (AUTO) 79 % (42-75); PLATELET COUNT 271 x10^3/uL (130-400); RED BLOOD COUNT 4.02 x10^6/uL (3.82-5.3); RED CELL DISTRIBUTION WIDTH 14.4 % (9.6-15.2)
[2019-12-14 08:31] LABS: MD NO
[2019-12-14 08:36] LABS: ANION GAP 4 mmol/L (5-15); CALCIUM 8.1 mg/dL (8.5-10.1); CHLORIDE 107 mmol/L (98-107)
[2019-12-14 08:39] LABS: ALANINE AMINOTRANSFERASE 25 U/L (12-78); ALKALINE PHOSPHATASE 70 U/L (45-117); BILIRUBIN,TOTAL 0.1 mg/dL (0.2-1.0); TOTAL PROTEIN 7.3 g/dL (6.4-8.2)
[2019-12-14] MEDS: BUPROPION 100 MG TABLET PO SCH ×2 (10:02→13:20)
[2019-12-14] MEDS: ASCORBIC ACID 500 MG TABLET PO SCH ×2 (10:02→18:24)
[2019-12-14] MEDS: ZINC SULFATE 220 MG CAPSULE PO SCH (10:02)
[2019-12-14] MEDS: HYDROCHLOROTHIAZIDE 25 MG TABLET PO SCH (10:02)
[2019-12-14] MEDS: CHOLECALCIFEROL 1,000 UNIT TABLET PO SCH (10:02)
[2019-12-14] MEDS: METOPROLOL TARTRATE 25 MG TAB PO SCH ×2 (10:03→22:05)
[2019-12-14] MEDS: LISINOPRIL 40 MG TABLET PO SCH (10:03)
[2019-12-14] MEDS ORDERED: REMDESIVIR 200 MG in SODIUM CHLORIDE 0.9% 250 ML IVPB ONE (11:30)
[2019-12-14 12:22] VITALS: BP 133/87
[2019-12-14] MEDS: FUROSEMIDE 40 MG/4 ML IV SCH (18:25)
[2019-12-14 19:21] VITALS: BP 138/82
[2019-12-14] MEDS: AZITHROMYCIN 500 MG in SODIUM CHLORIDE 0.9% 250 ML IV SCH (20:57)
[2019-12-14] MEDS: CEFTRIAXONE PMX 1GM/50ML 50 ML IV SCH (22:05)
[2019-12-14] MEDS: TRAZODONE 50MG TABLET PO SCH (22:05)
[2019-12-15 01:24] VITALS: BP 106/66
[2019-12-15] MEDS: DEXAMETHASONE 4 MG/ML, 1ML IVPush SCH ×4 (04:11→22:26)
[2019-12-15 06:01] LABS: CREATININE 0.83 mg/dL (0.55-1.02)
[2019-12-15 06:02] LABS: ALANINE AMINOTRANSFERASE 27 U/L (12-78); ALBUMIN 3.2 g/dL (3.4-5.0)
[2019-12-15 06:11] LABS: ALKALINE PHOSPHATASE 67 U/L (45-117); BILIRUBIN,TOTAL 0.1 mg/dL (0.2-1.0); TOTAL PROTEIN 7.5 g/dL (6.4-8.2)
[2019-12-15 06:15] LABS: INTERNATIONAL NORMALIZED RATIO 0.9 (0.93-1.1); PROTHROMBIN TIME 9.6 Seconds (9.6-11.5)
[2019-12-15 06:41] LABS: ANION GAP 6 mmol/L (5-15); CHLORIDE 102 mmol/L (98-107)
[2019-12-15 07:03] VITALS: BP 127/76
[2019-12-15] MEDS: ENOXAPARIN 40 MG/0.4 ML SQ SCH (09:00)
[2019-12-15] MEDS: BUPROPION 100 MG TABLET PO SCH ×2 (10:02→13:24)
[2019-12-15] MEDS: LISINOPRIL 40 MG TABLET PO SCH (10:02)
[2019-12-15] MEDS: HYDROCHLOROTHIAZIDE 25 MG TABLET PO SCH (10:02)
[2019-12-15] MEDS: CHOLECALCIFEROL 1,000 UNIT TABLET PO SCH (10:02)
[2019-12-15] MEDS: METOPROLOL TARTRATE 25 MG TAB PO SCH ×2 (10:02→20:57)
[2019-12-15] MEDS: ZINC SULFATE 220 MG CAPSULE PO SCH (10:02)
[2019-12-15] MEDS: FUROSEMIDE 40 MG/4 ML IV SCH ×2 (10:03→17:03)
[2019-12-15 12:22] VITALS: BP 112/66
[2019-12-15] MEDS: REMDESIVIR 100 MG in SODIUM CHLORIDE 0.9% 250 ML IVPB SCH (13:25)
[2019-12-15] MEDS: ASCORBIC ACID 500 MG TABLET PO SCH ×2 (13:25→17:02)
[2019-12-15 19:23] VITALS: BP 125/70
[2019-12-15] MEDS: AZITHROMYCIN 500 MG in SODIUM CHLORIDE 0.9% 250 ML IV SCH (20:57)
[2019-12-15] MEDS: TRAZODONE 50MG TABLET PO SCH (20:58)
[2019-12-15] MEDS: CEFTRIAXONE PMX 1GM/50ML 50 ML IV SCH (22:26)
[2019-12-16 00:50] VITALS: BP 109/73
[2019-12-16] MEDS: DEXAMETHASONE 4 MG/ML, 1ML IVPush SCH ×4 (04:34→22:48)
[2019-12-16 05:53] LABS: BASOPHILS % (AUTO) 0 % (0-1); EOSINOPHILS % (AUTO) 0 % (1-7); LYMPHOCYTES % (AUTO) 15 % (22-44); MEAN CORPUSCULAR HEMOGLOBIN 27.7 pg (27.0-34.8); MEAN PLATELET VOLUME 7.4 fL (7.4-10.4); MONOCYTES % (AUTO) 10 % (2-9); NEUTROPHILS % (AUTO) 75 % (42-75); PLATELET COUNT 314 x10^3/uL (130-400); RED BLOOD COUNT 3.98 x10^6/uL (3.82-5.3); RED CELL DISTRIBUTION WIDTH 14.3 % (9.6-15.2)
[2019-12-16 05:57] LABS: ALANINE AMINOTRANSFERASE 27 U/L (12-78); CALCIUM 8.2 mg/dL (8.5-10.1)
[2019-12-16 06:00] LABS: ALKALINE PHOSPHATASE 63 U/L (45-117); BILIRUBIN,TOTAL 0.2 mg/dL (0.2-1.0); CREATININE 0.76 mg/dL (0.55-1.02); TOTAL PROTEIN 7.2 g/dL (6.4-8.2)
[2019-12-16 06:05] LABS: ANION GAP 1 mmol/L (5-15); CHLORIDE 100 mmol/L (98-107)
[2019-12-16 06:09] LABS: MD NO
[2019-12-16 09:36] VITALS: BP 138/89
[2019-12-16] MEDS: ZINC SULFATE 220 MG CAPSULE PO SCH (11:44)
[2019-12-16] MEDS: METOPROLOL TARTRATE 25 MG TAB PO SCH ×2 (11:44→21:12)
[2019-12-16] MEDS: HYDROCHLOROTHIAZIDE 25 MG TABLET PO SCH (11:44)
[2019-12-16] MEDS: ASCORBIC ACID 500 MG TABLET PO SCH ×2 (11:44→18:18)
[2019-12-16] MEDS: CHOLECALCIFEROL 1,000 UNIT TABLET PO SCH (11:45)
[2019-12-16] MEDS: BUPROPION 100 MG TABLET PO SCH ×2 (11:45→11:50)
[2019-12-16] MEDS: LISINOPRIL 40 MG TABLET PO SCH (11:45)
[2019-12-16] MEDS: ENOXAPARIN 40 MG/0.4 ML SQ SCH (11:47)
[2019-12-16] MEDS: FUROSEMIDE 40 MG/4 ML IV SCH (11:48)
[2019-12-16 12:38] VITALS: BP 140/81
[2019-12-16] MEDS: REMDESIVIR 100 MG in SODIUM CHLORIDE 0.9% 250 ML IVPB SCH (14:16)
[2019-12-16 20:34] VITALS: BP 126/79
[2019-12-16 20:51] VITALS: BP 123/77
[2019-12-16] MEDS: AZITHROMYCIN 500 MG in SODIUM CHLORIDE 0.9% 250 ML IV SCH (21:11)
[2019-12-16] MEDS: TRAZODONE 50MG TABLET PO SCH (21:12)
[2019-12-16] MEDS: CEFTRIAXONE PMX 1GM/50ML 50 ML IV SCH (22:48)
[2019-12-17 00:47] VITALS: BP 148/89
[2019-12-17] MEDS: DEXAMETHASONE 4 MG/ML, 1ML IVPush SCH ×4 (04:07→22:41)
[2019-12-17 06:03] LABS: CHLORIDE 95 mmol/L (98-107)
[2019-12-17 06:17] LABS: ALANINE AMINOTRANSFERASE 34 U/L (12-78); ALBUMIN 3.1 g/dL (3.4-5.0); ALKALINE PHOSPHATASE 61 U/L (45-117); ANION GAP 1 mmol/L (5-15); BILIRUBIN,TOTAL 0.1 mg/dL (0.2-1.0); CALCIUM 8.5 mg/dL (8.5-10.1); TOTAL PROTEIN 7.3 g/dL (6.4-8.2)
[2019-12-17] MEDS: HYDROCHLOROTHIAZIDE 25 MG TABLET PO SCH (08:25)
[2019-12-17] MEDS: ZINC SULFATE 220 MG CAPSULE PO SCH (08:25)
[2019-12-17] MEDS: LISINOPRIL 40 MG TABLET PO SCH (08:25)
[2019-12-17] MEDS: ASCORBIC ACID 500 MG TABLET PO SCH ×2 (08:25→15:57)
[2019-12-17] MEDS: METOPROLOL TARTRATE 25 MG TAB PO SCH ×2 (08:25→22:40)
[2019-12-17] MEDS: CHOLECALCIFEROL 1,000 UNIT TABLET PO SCH (08:25)
[2019-12-17] MEDS: BUPROPION 100 MG TABLET PO SCH ×2 (08:25→11:22)
[2019-12-17] MEDS: ENOXAPARIN 40 MG/0.4 ML SQ SCH (08:26)
[2019-12-17 09:00] VITALS: BP 139/72
[2019-12-17] MEDS: REMDESIVIR 100 MG in SODIUM CHLORIDE 0.9% 250 ML IVPB SCH (13:43)
[2019-12-17 13:48] VITALS: BP 121/77
[2019-12-17 20:36] VITALS: BP 153/91
[2019-12-17] MEDS: AZITHROMYCIN 500 MG in SODIUM CHLORIDE 0.9% 250 ML IV SCH (22:39)
[2019-12-17] MEDS: TRAZODONE 50MG TABLET PO SCH (22:39)
[2019-12-17] MEDS: ENOXAPARIN 30 MG/0.3 ML SQ SCH (22:40)
[2019-12-17] MEDS: GUAIFENESIN/DM 200-20MG, 10ML UDC PO PRN (22:40)
[2019-12-18] MEDS: CEFTRIAXONE PMX 1GM/50ML 50 ML IV SCH (00:40)
[2019-12-18 01:58] VITALS: BP 138/77
[2019-12-18 05:46] LABS: CHLORIDE 97 mmol/L (98-107)
[2019-12-18 05:53] LABS: ALANINE AMINOTRANSFERASE 28 U/L (12-78); ALKALINE PHOSPHATASE 62 U/L (45-117); ANION GAP 1 mmol/L (5-15); BILIRUBIN,TOTAL 0.2 mg/dL (0.2-1.0); CALCIUM 8.5 mg/dL (8.5-10.1); CREATININE 0.68 mg/dL (0.55-1.02); TOTAL PROTEIN 7.3 g/dL (6.4-8.2)
[2019-12-18] MEDS: DEXAMETHASONE 4 MG/ML, 1ML IVPush SCH ×4 (06:00→22:44)
[2019-12-18 06:39] VITALS: BP 137/89
[2019-12-18] MEDS: ENOXAPARIN 30 MG/0.3 ML SQ SCH ×2 (09:00→21:00)
[2019-12-18] MEDS: METOPROLOL TARTRATE 25 MG TAB PO SCH ×2 (09:17→21:06)
[2019-12-18] MEDS: ZINC SULFATE 220 MG CAPSULE PO SCH (09:17)
[2019-12-18] MEDS: LISINOPRIL 40 MG TABLET PO SCH (09:17)
[2019-12-18] MEDS: HYDROCHLOROTHIAZIDE 25 MG TABLET PO SCH (09:18)
[2019-12-18] MEDS: GUAIFENESIN/DM 200-20MG, 10ML UDC PO PRN (09:18)
[2019-12-18] MEDS: ACETAMINOPHEN 325 MG TABLET PO PRN (09:18)
[2019-12-18] MEDS: BUPROPION 100 MG TABLET PO SCH ×2 (09:19→12:22)
[2019-12-18] MEDS: CHOLECALCIFEROL 1,000 UNIT TABLET PO SCH (09:19)
[2019-12-18] MEDS: ASCORBIC ACID 500 MG TABLET PO SCH ×3 (09:22→16:53)
[2019-12-18 12:47] VITALS: BP 169/107
[2019-12-18] MEDS: REMDESIVIR 100 MG in SODIUM CHLORIDE 0.9% 250 ML IVPB SCH (13:23)
[2019-12-18 13:44] VITALS: BP 137/88
[2019-12-18 18:26] VITALS: BP 131/86
[2019-12-18] MEDS: TRAZODONE 50MG TABLET PO SCH (21:06)
[2019-12-18] MEDS: AZITHROMYCIN 500 MG in SODIUM CHLORIDE 0.9% 250 ML IV SCH (21:07)
[2019-12-19] MEDS: CEFTRIAXONE PMX 1GM/50ML 50 ML IV SCH (00:13)
[2019-12-19 01:18] VITALS: BP 139/88
[2019-12-19] MEDS: DEXAMETHASONE 4 MG/ML, 1ML IVPush SCH ×3 (05:02→17:41)
[2019-12-19 06:57] VITALS: BP 155/82
[2019-12-19] MEDS: CHOLECALCIFEROL 1,000 UNIT TABLET PO SCH (09:00)
[2019-12-19] MEDS: ACETAMINOPHEN 325 MG TABLET PO PRN (09:52)
[2019-12-19] MEDS: LISINOPRIL 40 MG TABLET PO SCH (09:52)
[2019-12-19] MEDS: METOPROLOL TARTRATE 25 MG TAB PO SCH ×2 (09:52→20:59)
[2019-12-19] MEDS: ASCORBIC ACID 500 MG TABLET PO SCH ×2 (09:52→17:41)
[2019-12-19] MEDS: BUPROPION 100 MG TABLET PO SCH ×2 (09:52→12:19)
[2019-12-19] MEDS: ZINC SULFATE 220 MG CAPSULE PO SCH (09:52)
[2019-12-19] MEDS: ENOXAPARIN 30 MG/0.3 ML SQ SCH ×2 (09:53→20:59)
[2019-12-19] MEDS: HYDROCHLOROTHIAZIDE 25 MG TABLET PO SCH (09:53)
[2019-12-19 13:09] VITALS: BP 127/85
[2019-12-19 18:14] VITALS: BP 126/89
[2019-12-19] MEDS: TRAZODONE 50MG TABLET PO SCH (20:59)
[2019-12-19] MEDS: AZITHROMYCIN 500 MG in SODIUM CHLORIDE 0.9% 250 ML IV SCH (21:23)
[2019-12-19] MEDS: GUAIFENESIN/DM 200-20MG, 10ML UDC PO PRN (21:29)
[2019-12-20] MEDS: DEXAMETHASONE 4 MG/ML, 1ML IVPush SCH ×3 (00:11→12:03)
[2019-12-20] MEDS: CEFTRIAXONE PMX 1GM/50ML 50 ML IV SCH (00:11)
[2019-12-20 00:16] VITALS: BP 132/91
[2019-12-20 06:39] VITALS: BP 117/78
[2019-12-20 08:00] VITALS: BP 152/67
[2019-12-20] MEDS: ZINC SULFATE 220 MG CAPSULE PO SCH (09:10)
[2019-12-20] MEDS: BUPROPION 75 MG TABLET PO SCH ×2 (09:10→12:03)
[2019-12-20] MEDS: CHOLECALCIFEROL 1,000 UNIT TABLET PO SCH (09:10)
[2019-12-20] MEDS: METOPROLOL TARTRATE 25 MG TAB PO SCH ×2 (09:10→20:36)
[2019-12-20] MEDS: HYDROCHLOROTHIAZIDE 25 MG TABLET PO SCH (09:10)
[2019-12-20] MEDS: ASCORBIC ACID 500 MG TABLET PO SCH ×2 (09:10→16:13)
[2019-12-20] MEDS: LISINOPRIL 40 MG TABLET PO SCH (09:10)
[2019-12-20] MEDS: ENOXAPARIN 30 MG/0.3 ML SQ SCH ×2 (09:11→20:37)
[2019-12-20] MEDS: ACETAMINOPHEN 325 MG TABLET PO PRN (12:03)
[2019-12-20 13:29] VITALS: BP 98/51
[2019-12-20 19:44] VITALS: BP 135/84
[2019-12-20] MEDS: TRAZODONE 50MG TABLET PO SCH (20:36)
[2019-12-21 07:03] VITALS: BP 117/78
[2019-12-21] MEDS: ASCORBIC ACID 500 MG TABLET PO SCH ×2 (09:09→16:57)
[2019-12-21] MEDS: ZINC SULFATE 220 MG CAPSULE PO SCH (09:09)
[2019-12-21] MEDS: METOPROLOL TARTRATE 25 MG TAB PO SCH ×2 (09:09→20:58)
[2019-12-21] MEDS: CHOLECALCIFEROL 1,000 UNIT TABLET PO SCH (09:09)
[2019-12-21] MEDS: ENOXAPARIN 30 MG/0.3 ML SQ SCH ×2 (09:09→20:59)
[2019-12-21] MEDS: LISINOPRIL 40 MG TABLET PO SCH (09:10)
[2019-12-21] MEDS: BUPROPION 75 MG TABLET PO SCH ×2 (09:10→12:15)
[2019-12-21] MEDS: HYDROCHLOROTHIAZIDE 25 MG TABLET PO SCH (09:10)
[2019-12-21] MEDS: ACETAMINOPHEN 325 MG TABLET PO PRN (09:27)
[2019-12-21 12:43] VITALS: BP 114/71
[2019-12-21 18:28] VITALS: BP 121/90
[2019-12-21] MEDS: TRAZODONE 50MG TABLET PO SCH (20:58)
[2019-12-22 00:22] VITALS: BP 101/64
[2019-12-22 06:41] VITALS: BP 117/74
[2019-12-22] MEDS: ZINC SULFATE 220 MG CAPSULE PO SCH (09:19)
[2019-12-22] MEDS: ENOXAPARIN 30 MG/0.3 ML SQ SCH ×2 (09:19→19:56)
[2019-12-22] MEDS: HYDROCHLOROTHIAZIDE 25 MG TABLET PO SCH (09:20)
[2019-12-22] MEDS: LISINOPRIL 40 MG TABLET PO SCH (09:20)
[2019-12-22] MEDS: CHOLECALCIFEROL 1,000 UNIT TABLET PO SCH (09:20)
[2019-12-22] MEDS: ASCORBIC ACID 500 MG TABLET PO SCH ×2 (09:20→17:32)
[2019-12-22] MEDS: METOPROLOL TARTRATE 25 MG TAB PO SCH ×2 (09:20→19:57)
[2019-12-22] MEDS: BUPROPION 75 MG TABLET PO SCH ×2 (09:20→12:01)
[2019-12-22 13:16] VITALS: BP 106/73
[2019-12-22 19:43] VITALS: BP 102/72
[2019-12-22] MEDS: TRAZODONE 50MG TABLET PO SCH (19:57)
[2019-12-23 01:40] VITALS: BP 101/67
[2019-12-23 07:06] VITALS: BP 120/57
[2019-12-23] MEDS: ENOXAPARIN 30 MG/0.3 ML SQ SCH ×2 (09:00→21:15)
[2019-12-23] MEDS: BUPROPION 75 MG TABLET PO SCH ×2 (09:29→12:33)
[2019-12-23] MEDS: ZINC SULFATE 220 MG CAPSULE PO SCH (09:29)
[2019-12-23] MEDS: LISINOPRIL 40 MG TABLET PO SCH (09:29)
[2019-12-23] MEDS: HYDROCHLOROTHIAZIDE 25 MG TABLET PO SCH (09:29)
[2019-12-23] MEDS: METOPROLOL TARTRATE 25 MG TAB PO SCH ×2 (09:29→21:00)
[2019-12-23] MEDS: CHOLECALCIFEROL 1,000 UNIT TABLET PO SCH (09:30)
[2019-12-23] MEDS: ASCORBIC ACID 500 MG TABLET PO SCH ×2 (09:30→16:05)
[2019-12-23] MEDS ORDERED: LIDOCAINE 2% VISCOUS, 100ML MM PRN (10:00)
[2019-12-23 12:02] VITALS: BP 102/59
[2019-12-23 18:26] VITALS: BP 96/61
[2019-12-23] MEDS: TRAZODONE 50MG TABLET PO SCH (21:15)
[2019-12-24] VITALS (8 sets, daily range): BP systolic 95–111; BP diastolic 64–78
[2019-12-24] MEDS: CHOLECALCIFEROL 1,000 UNIT TABLET PO SCH (10:35)
[2019-12-24] MEDS: BUPROPION 75 MG TABLET PO SCH ×2 (10:35→13:18)
[2019-12-24] MEDS: METOPROLOL TARTRATE 25 MG TAB PO SCH ×2 (10:35→21:35)
[2019-12-24] MEDS: HYDROCHLOROTHIAZIDE 25 MG TABLET PO SCH (10:36)
[2019-12-24] MEDS: LISINOPRIL 40 MG TABLET PO SCH (10:36)
[2019-12-24] MEDS: ENOXAPARIN 30 MG/0.3 ML SQ SCH ×2 (10:36→21:35)
[2019-12-24] MEDS: ZINC SULFATE 220 MG CAPSULE PO SCH (10:36)
[2019-12-24] MEDS: ASCORBIC ACID 500 MG TABLET PO SCH ×2 (10:38→17:27)
[2019-12-24] MEDS: TRAZODONE 50MG TABLET PO SCH (21:35)
[2019-12-25 00:12] VITALS: BP 96/65
[2019-12-25 03:49] VITALS: BP 103/70
[2019-12-25 06:58] VITALS: BP 113/82
[2019-12-25] MEDS: CHOLECALCIFEROL 1,000 UNIT TABLET PO SCH (09:41)
[2019-12-25] MEDS: HYDROCHLOROTHIAZIDE 25 MG TABLET PO SCH (09:41)
[2019-12-25] MEDS: BUPROPION 75 MG TABLET PO SCH ×2 (09:41→12:31)
[2019-12-25] MEDS: ASCORBIC ACID 500 MG TABLET PO SCH ×2 (09:41→16:10)
[2019-12-25] MEDS: ZINC SULFATE 220 MG CAPSULE PO SCH (09:42)
[2019-12-25] MEDS: METOPROLOL TARTRATE 25 MG TAB PO SCH ×2 (09:42→21:34)
[2019-12-25] MEDS: ENOXAPARIN 30 MG/0.3 ML SQ SCH ×2 (09:42→21:35)
[2019-12-25] MEDS: LISINOPRIL 40 MG TABLET PO SCH (09:42)
[2019-12-25 12:09] VITALS: BP 102/67
[2019-12-25 18:15] VITALS: BP 96/64
[2019-12-25] MEDS: TRAZODONE 50MG TABLET PO SCH (21:34)
[2019-12-25 21:35] VITALS: BP 105/66
[2019-12-26 00:18] VITALS: BP 101/67
[2019-12-26 07:50] VITALS: BP 104/72
[2019-12-26] MEDS: BUPROPION 75 MG TABLET PO SCH ×2 (09:15→12:18)
[2019-12-26] MEDS: HYDROCHLOROTHIAZIDE 25 MG TABLET PO SCH (09:15)
[2019-12-26] MEDS: LISINOPRIL 10 MG TABLET PO SCH (09:16)
[2019-12-26] MEDS: METOPROLOL TARTRATE 25 MG TAB PO SCH ×2 (09:16→19:56)
[2019-12-26] MEDS: CHOLECALCIFEROL 1,000 UNIT TABLET PO SCH (09:16)
[2019-12-26] MEDS: ENOXAPARIN 30 MG/0.3 ML SQ SCH ×2 (09:17→19:56)
[2019-12-26] MEDS: ZINC SULFATE 220 MG CAPSULE PO SCH (09:17)
[2019-12-26] MEDS: ASCORBIC ACID 500 MG TABLET PO SCH ×2 (09:17→15:10)
[2019-12-26 14:57] VITALS: BP 108/75
[2019-12-26 18:09] VITALS: BP 116/74
[2019-12-26] MEDS: TRAZODONE 50MG TABLET PO SCH (19:56)
[2019-12-27 02:22] VITALS: BP 115/80
[2019-12-27 06:40] VITALS: BP 108/57
[2019-12-27] MEDS: ASCORBIC ACID 500 MG TABLET PO SCH ×2 (09:46→15:02)
[2019-12-27] MEDS: LISINOPRIL 10 MG TABLET PO SCH (09:47)
[2019-12-27] MEDS: HYDROCHLOROTHIAZIDE 25 MG TABLET PO SCH (09:47)
[2019-12-27] MEDS: ENOXAPARIN 30 MG/0.3 ML SQ SCH ×2 (09:47→21:21)
[2019-12-27] MEDS: METOPROLOL TARTRATE 25 MG TAB PO SCH ×2 (09:47→21:20)
[2019-12-27] MEDS: BUPROPION 75 MG TABLET PO SCH ×2 (09:47→11:41)
[2019-12-27] MEDS: ZINC SULFATE 220 MG CAPSULE PO SCH (09:47)
[2019-12-27] MEDS: CHOLECALCIFEROL 1,000 UNIT TABLET PO SCH (09:48)
[2019-12-27 12:58] VITALS: BP 98/64
[2019-12-27 18:28] VITALS: BP 112/75
[2019-12-27] MEDS: TRAZODONE 50MG TABLET PO SCH (21:20)
[2019-12-28 07:09] VITALS: BP 116/75
[2019-12-28] MEDS: METOPROLOL TARTRATE 25 MG TAB PO SCH ×2 (08:56→21:35)
[2019-12-28] MEDS: LISINOPRIL 10 MG TABLET PO SCH (08:56)
[2019-12-28] MEDS: ZINC SULFATE 220 MG CAPSULE PO SCH (08:56)
[2019-12-28] MEDS: ENOXAPARIN 30 MG/0.3 ML SQ SCH ×2 (08:56→21:36)
[2019-12-28] MEDS: CHOLECALCIFEROL 1,000 UNIT TABLET PO SCH (08:56)
[2019-12-28] MEDS: BUPROPION 75 MG TABLET PO SCH ×2 (08:56→12:14)
[2019-12-28] MEDS: ASCORBIC ACID 500 MG TABLET PO SCH ×2 (08:57→16:36)
[2019-12-28 12:00] VITALS: BP 128/91
[2019-12-28 21:34] VITALS: BP 119/85
[2019-12-28] MEDS: TRAZODONE 50MG TABLET PO SCH (21:35)
[2019-12-29 02:19] VITALS: BP 125/86
[2019-12-29] MEDS: ASCORBIC ACID 500 MG TABLET PO SCH ×2 (07:44→16:46)
[2019-12-29] MEDS: BUPROPION 75 MG TABLET PO SCH ×2 (07:44→12:00)
[2019-12-29] MEDS: CHOLECALCIFEROL 1,000 UNIT TABLET PO SCH (07:44)
[2019-12-29] MEDS: ENOXAPARIN 30 MG/0.3 ML SQ SCH ×2 (07:44→20:10)
[2019-12-29] MEDS: ZINC SULFATE 220 MG CAPSULE PO SCH (07:44)
[2019-12-29] MEDS: METOPROLOL TARTRATE 25 MG TAB PO SCH ×2 (07:45→20:10)
[2019-12-29] MEDS: LISINOPRIL 10 MG TABLET PO SCH (07:45)
[2019-12-29 08:19] VITALS: BP 106/62
[2019-12-29 12:04] VITALS: BP 107/71
[2019-12-29 19:37] VITALS: BP 117/77
[2019-12-29] MEDS: TRAZODONE 50MG TABLET PO SCH (20:10)
[2019-12-30 00:15] VITALS: BP 110/71
[2019-12-30 07:32] VITALS: BP 115/66
[2019-12-30] MEDS: ENOXAPARIN 30 MG/0.3 ML SQ SCH (09:00)
[2019-12-30] MEDS: LISINOPRIL 10 MG TABLET PO SCH (09:58)
[2019-12-30] MEDS: METOPROLOL TARTRATE 25 MG TAB PO SCH (09:58)
[2019-12-30] MEDS: ASCORBIC ACID 500 MG TABLET PO SCH (09:58)
[2019-12-30] MEDS: CHOLECALCIFEROL 1,000 UNIT TABLET PO SCH (09:58)
[2019-12-30] MEDS: BUPROPION 75 MG TABLET PO SCH ×2 (09:58→12:04)
[2019-12-30] MEDS: ZINC SULFATE 220 MG CAPSULE PO SCH (09:58)
[2019-12-30 12:15] VITALS: BP 128/85
[2019-12-30] MEDS ORDERED: LISI-167 PO (15:01)
[2019-12-31] MEDS ORDERED: ENOXAPARIN 40 MG/0.4 ML SQ SCH (16:00)
[2019-12-31] MEDS ORDERED: METOPROLOL TARTRATE 25 MG TAB PO SCH (18:00)
== END 2019-12-30 16:59 | DRG 177 ==
LOC: SUATTDRO 13:10 → ED 15:18 → EDIP 15:34 → 3N 21:58
PROVIDERS: ADMIT Family Medicine; ATTEND Family Medicine
PROC: XW033E5 Introduction of Remdesivir Anti-infective into Peripheral Vein, Percutaneous Approach, New Technology Group 5 (ICD-10-PCS; principal; 2019-12-23)
DX: U07.1 COVID-19 (principal); J12.89 Other viral pneumonia; J96.01 Acute respiratory failure with hypoxia; D68.9 Coagulation defect, unspecified; Z68.43 Body mass index [BMI] 50.0-59.9, adult; J44.0 Chronic obstructive pulmonary disease with (acute) lower respiratory infection; R45.851 Suicidal ideations; F12.90 Cannabis use, unspecified, uncomplicated; F10.10 Alcohol abuse, uncomplicated; E87.6 Hypokalemia; E66.01 Morbid (severe) obesity due to excess calories; F15.10 Other stimulant abuse, uncomplicated; F17.210 Nicotine dependence, cigarettes, uncomplicated; F41.8 Other specified anxiety disorders; G47.33 Obstructive sleep apnea (adult) (pediatric); I10 Essential (primary) hypertension; K52.9 Noninfective gastroenteritis and colitis, unspecified; Z86.19 Personal history of other infectious and parasitic diseases; Z86.711 Personal history of pulmonary embolism; Z90.89 Acquired absence of other organs; Z90.49 Acquired absence of other specified parts of digestive tract
CPT/HCPCS: 36415; 71045; 80053; 82565; 83615; 84145; 85025; 85379; 85610; 86140; 87040; 87635; 93005; 96361; 96365; 96375; 99285; G0378; J0456; J0696; J1100; J1650; J1940; J2405; Q0162; J7030; J7050; Q0177; U0003

== ENCOUNTER 2019-12-30 15:39 | Inpatient (IN) | payer MEDICAID ==
[~2019-12-30] VITALS: Ht 154.9 cm; Wt 136.9 kg
[~2019-12-30 15:39] MED LIST changes: +LISI-167 PO
[2019-12-30] MEDS ORDERED: POLYETHYLENE GLYCOL 17 GM PACKET PO PRN (16:30)
[2019-12-30] MEDS ORDERED: DOCUSATE 100 MG CAPSULE PO PRN (16:30)
[2019-12-30] MEDS ORDERED: BISACODYL 10 MG SUPP PR PRN (16:30)
[2019-12-30 17:59] LABS: MICROSCOPIC INDICATED
[2019-12-30] MEDS ORDERED: ONDANSETRON ODT 4 MG PO PRN (18:00)
[2019-12-30 18:03] LABS: AMPHETAMINE SCREEN, URINE Negative (Negative); BARBITURATE SCREEN, URINE Negative (Negative); BENZODIAZEPINE SCREEN, URINE Negative (Negative); CANNABINOID SCREEN, URINE Negative (Negative); COCAINE SCREEN, URINE Negative (Negative); METHADONE SCREEN, URINE Negative (Negative); OPIATE SCREEN, URINE Negative (Negative)
[2019-12-30 18:28] VITALS: BP 156/78
[2019-12-30 19:43] VITALS: BP 117/79
[2019-12-30] MEDS ORDERED: TRAZODONE 100MG TABLET PO SCH (21:00)
[2019-12-31 05:05] VITALS: BP 135/84
[2019-12-31] MEDS: METOPROLOL TARTRATE 25 MG TAB PO SCH ×2 (05:10→17:12)
[2019-12-31 07:24] VITALS: BP 106/71
[2019-12-31] MEDS: CHOLECALCIFEROL 1,000 UNIT TABLET PO SCH (08:37)
[2019-12-31] MEDS: BUPROPION SR 150 MG TABLET PO SCH ×2 (08:37→11:08)
[2019-12-31] MEDS: NICOTINE 21 MG/24 HR PATCH.TD24 TD SCH (08:38)
[2019-12-31] MEDS ORDERED: LISINOPRIL 10 MG TABLET PO SCH (09:00)
[2019-12-31 09:04] LABS: CHOL/HDL RATIO 3.6; FREE T4 (FREE THYROXINE) 0.82 ng/dL (0.76-1.46)
[2019-12-31] MEDS: ACETAMINOPHEN 325 MG TABLET PO PRN (13:58)
[2019-12-31] MEDS ORDERED: ALBUTEROL HFA 90 MCG/SPRAY INH PRN (15:30)
[2019-12-31 19:34] VITALS: BP 135/82
[2019-12-31] MEDS: QUETIAPINE 100MG TABLET PO SCH (20:18)
[2020-01-01 05:25] VITALS: BP 126/85
[2020-01-01] MEDS: METOPROLOL TARTRATE 25 MG TAB PO SCH ×2 (05:29→17:09)
[2020-01-01 07:03] VITALS: BP 118/77
[2020-01-01] MEDS: BUPROPION SR 150 MG TABLET PO SCH ×2 (08:32→11:57)
[2020-01-01] MEDS: CHOLECALCIFEROL 1,000 UNIT TABLET PO SCH (08:32)
[2020-01-01] MEDS: NICOTINE 21 MG/24 HR PATCH.TD24 TD SCH (08:33)
[2020-01-01 19:37] VITALS: BP 124/83
[2020-01-01] MEDS: QUETIAPINE 100MG TABLET PO SCH (20:16)
[2020-01-02 05:38] VITALS: BP 118/78
[2020-01-02] MEDS: METOPROLOL TARTRATE 25 MG TAB PO SCH ×2 (05:41→17:34)
[2020-01-02 07:12] VITALS: BP 133/75
[2020-01-02] MEDS: CHOLECALCIFEROL 1,000 UNIT TABLET PO SCH (08:24)
[2020-01-02] MEDS: BUPROPION SR 150 MG TABLET PO SCH ×2 (08:24→11:55)
[2020-01-02] MEDS: NICOTINE 21 MG/24 HR PATCH.TD24 TD SCH (08:25)
[2020-01-02 19:53] VITALS: BP 136/74
[2020-01-02] MEDS: QUETIAPINE 100MG TABLET PO SCH (20:30)
[2020-01-03 06:19] VITALS: BP 116/73
[2020-01-03] MEDS: METOPROLOL TARTRATE 25 MG TAB PO SCH ×2 (06:20→17:54)
[2020-01-03 07:12] VITALS: BP 114/70
[2020-01-03] MEDS: BUPROPION SR 150 MG TABLET PO SCH ×2 (08:00→12:00)
[2020-01-03] MEDS: CHOLECALCIFEROL 1,000 UNIT TABLET PO SCH (08:17)
[2020-01-03] MEDS: NICOTINE 21 MG/24 HR PATCH.TD24 TD SCH (08:18)
[2020-01-03 19:42] VITALS: BP 127/78
[2020-01-03] MEDS: QUETIAPINE 100MG TABLET PO SCH (20:55)
[2020-01-04] MEDS: METOPROLOL TARTRATE 25 MG TAB PO SCH ×2 (05:55→17:39)
[2020-01-04 07:23] VITALS: BP 121/79
[2020-01-04] MEDS: CHOLECALCIFEROL 1,000 UNIT TABLET PO SCH (08:37)
[2020-01-04] MEDS: BUPROPION SR 150 MG TABLET PO SCH ×2 (08:37→11:46)
[2020-01-04] MEDS: NICOTINE 21 MG/24 HR PATCH.TD24 TD SCH (08:38)
[2020-01-04 20:00] VITALS: BP 139/83
[2020-01-04] MEDS: QUETIAPINE 100MG TABLET PO SCH (20:13)
[2020-01-05] MEDS: METOPROLOL TARTRATE 25 MG TAB PO SCH ×2 (05:46→17:43)
[2020-01-05 07:05] VITALS: BP 100/69
[2020-01-05] MEDS: CHOLECALCIFEROL 1,000 UNIT TABLET PO SCH (08:49)
[2020-01-05] MEDS: NICOTINE 21 MG/24 HR PATCH.TD24 TD SCH (08:50)
[2020-01-05] MEDS: BUPROPION SR 150 MG TABLET PO SCH ×2 (08:50→12:00)
[2020-01-05 17:35] VITALS: BP 140/87
[2020-01-05 20:16] VITALS: BP 127/80
[2020-01-05] MEDS: QUETIAPINE 100MG TABLET PO SCH (21:20)
[2020-01-06] MEDS: METOPROLOL TARTRATE 25 MG TAB PO SCH ×2 (04:55→17:34)
[2020-01-06 07:26] VITALS: BP 107/67
[2020-01-06] MEDS: CHOLECALCIFEROL 1,000 UNIT TABLET PO SCH (08:34)
[2020-01-06] MEDS: BUPROPION SR 150 MG TABLET PO SCH ×2 (08:34→13:08)
[2020-01-06] MEDS: NICOTINE 21 MG/24 HR PATCH.TD24 TD SCH (08:35)
[2020-01-06] MEDS ORDERED: NICO-487 TD (16:09)
[2020-01-06] MEDS ORDERED: BUPR150T73 PO (16:09)
[2020-01-06] MEDS ORDERED: CHOL10003 PO (16:09)
[2020-01-06] MEDS ORDERED: ALBU18HF INH (16:09)
[2020-01-06] MEDS ORDERED: QUET100T PO (16:09)
[2020-01-06] MEDS ORDERED: METO25TA35 PO (16:09)
[2020-01-06] MEDS ORDERED: HYDR-826 PO (16:09)
[2020-01-06 19:50] VITALS: BP 117/78
[2020-01-06] MEDS: QUETIAPINE 100MG TABLET PO SCH (20:12)
[2020-01-07] MEDS: METOPROLOL TARTRATE 25 MG TAB PO SCH (06:20)
[2020-01-07 07:20] VITALS: BP 104/70
[2020-01-07] MEDS: CHOLECALCIFEROL 1,000 UNIT TABLET PO SCH (08:05)
[2020-01-07] MEDS: NICOTINE 21 MG/24 HR PATCH.TD24 TD SCH (08:05)
[2020-01-07] MEDS: BUPROPION SR 150 MG TABLET PO SCH (08:05)
[2020-01-07] MEDS: ACETAMINOPHEN 325 MG TABLET PO PRN (08:13)
[2020-01-07] MEDS ORDERED: FLU VACC QS2020-21(6MOS UP)/PF 60MCG/0.5 ML SYR IM-VACC ONE (11:00)
== END 2020-01-07 13:42 | disposition home or self-care (01) | DRG 885 ==
LOC: 3E 17:32
PROVIDERS: ADMIT Psychiatry & Neurology Psychosomatic Medicine; ATTEND Psychiatry & Neurology Psychosomatic Medicine
DX: F33.2 Major depressive disorder, recurrent severe without psychotic features (principal); J96.01 Acute respiratory failure with hypoxia; Z68.43 Body mass index [BMI] 50.0-59.9, adult; F15.20 Other stimulant dependence, uncomplicated; R45.851 Suicidal ideations; E66.01 Morbid (severe) obesity due to excess calories; F10.20 Alcohol dependence, uncomplicated; F41.0 Panic disorder [episodic paroxysmal anxiety]; F41.1 Generalized anxiety disorder; G47.00 Insomnia, unspecified; G47.33 Obstructive sleep apnea (adult) (pediatric); Z20.828 Contact with and (suspected) exposure to other viral communicable diseases; I10 Essential (primary) hypertension; J45.20 Mild intermittent asthma, uncomplicated; Z79.899 Other long term (current) drug therapy; Z90.49 Acquired absence of other specified parts of digestive tract; Z82.49 Family history of ischemic heart disease and other diseases of the circulatory system
CPT/HCPCS: 36415; 80061; 80307; 81001; 84439; 84443; 87086; 87635; 90686; Q0177